=== PATIENT | female | born 1955 | race Caucasian/White ===

== ENCOUNTER 2018-04-25 11:26 | Emergency (ER) | payer OTHER ==
--- OUTSIDE RECORDS SUMMARY | 2018-04-25 11:29 | XMS REPORT | Clinical Summary ---
:1955 Author Organization [facility] Address [address] [place] [address] Care Team Providers Name Role Phone Carol Ann Katz MD Primary Care Provider Allergies Active Allergy Reactions Severity Noted Date Comments Tramadol 07/08/2017 Medications Medication Sig Dispensed Refills Start Date End Date Status diphenhydrAMINE Take 25 mg by 0 Active (BENADRYL) 25 mg mouth daily as tablet needed for itching, allergies or sleep. fluticasone (FLONASE) 2 sprays by 0 Active 50 mcg/actuation nasal Each Nare route spray daily as needed for rhinitis or allergies. ibuprofen Take 200 mg by 0 Active (ADVIL,MOTRIN) 200 MG mouth every 6 tablet (six) hours as needed for mild pain. VALACYCLOVIR HCL Take 1 tablet 0 Active (VALTREX ORAL) by mouth daily as needed. omeprazole OTC Take 20 mg by 0 Active (PriLOSEC OTC) 20 MG mouth daily as EC tablet needed. conjugated estrogens Insert 0.5 g 30 g 1 04/15/2017 Active (PREMARIN) 0.625 into the vagina mg/gram vaginal 3 (three) times creamIndications: a week. Post-operative state, (Tuesday, History of recurrent Tuesday, & UTIs Tuesday) AT NIGHT. nitrofurantoin, Take 1 capsule 14 capsule 0 04/18/2017 04/25/2017 macrocrystal-monohydra (100 mg total) te, (MACROBID) 100 MG by mouth 2 capsule (two) times a day for 7 days. nitrofurantoin, Take 1 capsule 14 capsule 0 08/18/2017 08/25/2017 macrocrystal-monohydra (100 mg total) te, (MACROBID) 100 MG by mouth 2 capsuleIndications: (two) times a Bacterial UTI day for 7 days. epINEPHrine (EPIPEN) Inject 0.3 mL 1 Syringe 0 11/17/2017 11/17/2017 0.3 mg/0.3 mL (0.3 mg total) auto-injectorIndicatio into the ns: Urinary tract shoulder, infection without thigh, or hematuria, site buttocks once unspecified for 1 dose. cephalexin (KEFLEX) Take 1 capsule 90 capsule 0 12/22/2017 03/22/2018 250 MG (250 mg total) capsuleIndications: by mouth daily Recurrent UTI for 90 days. Active Problems Problem Noted Date Urinary tract infection 07/08/2017 History of recurrent UTIs 02/15/2017 Encounters Date Type Specialty Care Team Description 03/27/2018 Telephone UrologAnnalise Curiel MD 02/21/2018 Telephone UrologAnnalise Curiel MD 01/20/2018 Telephone UrologAnnalise Curiel History of UTI MD Gaby (Primary Dx) 01/17/2018 Telephone Annalise Hamlin MD 01/16/2018 Telephone Annalise Hamlin MD 01/10/2018 Telephone Annalise Hamlin History of UTI MD Gaby (Primary Dx) 12/28/2017 Telephone Urology Patt Alicia MA 12/22/2017 Office Visit Urogynecology Lauren Mcgraw Recurrent UTI Hernandez Vaughan MD (Primary Dx) 12/14/2017 Telephone Annalise Hamlin MD infection without hematuria, site unspecified (Primary Dx) 12/13/2017 Telephone Annalise Hamlin MD 12/09/2017 Telephone Urology Patt Alicia MA 12/08/2017 Telephone Annalise Hamlin MD 12/06/2017 Clinical Support Annalise Hamlin MD infection without hematuria, site unspecified (Primary Dx) 12/06/2017 Orders Only Annalise Hamlin MD 12/05/2017 Orders Only Annalise Hamlin Urinary heidi Griffin MD infection without hematuria, site unspecified (Primary Dx) 12/05/2017 Telephone Urology Annalise Gibson MD 11/29/2017 Emergency Emergency Medicine Andre English, Allergic contact MD dermatitis due to adhesives (Primary Dx) 11/29/2017 Telephone Urology Annalise Gibson MD 11/22/2017 Telephone Urology Annalise Gibson MD 11/17/2017 Telephone Urology Annalise Gibson MD 11/17/2017 Telephone Urology Pam Lawson, Urinary tract [employer] infection without hematuria, site unspecified (Primary Dx) 11/16/2017 Hospital Vascular Access Tamika Gibson UTI (urinary tract Encounter MD Catracho infection) 11/16/2017 Lab Lab Annalise Gibson MD 11/16/2017 Hospital Radiology Annalise Gibson Frequent UTI Encounter MD Gaby 11/16/2017 Lab Lab Annalise Gibson History of urinary Gaby MD tract infection (Primary Dx) 11/16/2017 Lab Lab Annalise Gibson History of UTI; MD Gaby Frequent UTI 11/16/2017 [facility] Vascular Access Tamika Gibson Encounter MD Catracho 11/16/2017 Telephone Urology Annalise Gibson MD 11/14/2017 Telephone Urology Annalise Gibson History of UTI MD Gaby (Primary Dx) 11/10/2017 Office Visit Urology Annalise Gibson Frequent UTI (Primary Dx); MD Gaby Chronic bladder pain 09/14/2017 Telephone Obstetrics Lauren Calabrese Gynecology Hernandez Vaughan MD 09/09/2017 Telephone Urogynecology Lauren Mcgraw MD 08/22/2017 Telephone Urogynecology Lauren Mcgraw MD 08/18/2017 Office Visit Urogynecology Lauren Mcgraw Urinary tract infection without hematuria, site unspecified (Primary Dx); Hernandez Vaughan MD Bacterial UTI; Incomplete bladder emptying 07/14/2017 Telephone Obstetrics Lauren Calabrese Gynecology Hernandez Vaughan MD 07/08/2017 - Emergency General Internal Yanni Hernandez Acute cystitis without hematuria (Primary Dx); 07/09/2017 Medicine MD Saira Urinary tract infection without hematuria, site unspecified Cristina Oshea MD Poonawala, Ashiqueali I., MD 07/07/2017 Emergency Emergency Medicine after 04/24/2017 Family History Medical History Relation Name Comments Diabetes Father Hyperlipidemia Mother Relation Name Status Comments Brother Alive Brother Alive Father Mother Alive Sister Alive Sister Alive Social History Tobacco Use Types Packs/Day Years Used Date Never Smoker Smokeless Tobacco: Never Used Alcohol Use Drinks/Week oz/Week Comments No Sex Assigned at Date Recorded Not on file Job Start Date Occupation Industry Not on file Not on file Not on file Travel History Travel Start Travel End No recent travel history available. Last Filed Vital Signs Vital Sign Reading Time Taken Blood Pressure 132/79 12/22/2017 8:18 AM SKIN DIVER Pulse 65 12/22/2017 8:18 AM SKIN DIVER Temperature 37.1 C (98.8 F) 12/22/2017 8:18 AM SKIN DIVER Respiratory Rate 17 11/29/2017 10:43 PM CDT Oxygen Saturation 98% 11/29/2017 10:43 PM CDT Inhaled Oxygen Concentration - - Weight 75.8 kg (167 lb) 12/22/2017 8:18 AM SKIN DIVER Height 170.2 cm (5' 7") 12/22/2017 8:18 AM SKIN DIVER Body Mass Index 26.16 12/22/2017 8:18 AM SKIN DIVER Plan of Treatment Health Maintenance Due Date Last Done Comments CERVICAL CANCER SCREENING 1977 BREAST CANCER SCREENING 2006 COLON CANCER SCREENING 2006 SHINGLES VACCINES (#1) 2006 INFLUENZA VACCINE 09/14/2017 Implants Implanted Type Area Water Taxi Driver Device Shelf Model / Identifier Expiration Serial / Date Lot Matrix [employer] Floseal 5ml W/ Humn F2 - [id number] Surgical N/A: N/A HERNANDES [id number] / Implanted: 02/02/2017 (Quantity not on file) Implants; [employer] / Expanders; Extenders; Surgical Wires Titanium Procedures Procedure Name Priority Date/Time Associated Comments Diagnosis URINE CULTURE Routine 01/23/2018 3:18 History of UTI Results for this PM SKIN DIVER procedure are in the results section. POC URINALYSIS Routine 12/22/2017 8:30 Recurrent UTI Results for this DIPSTICK AM SKIN DIVER procedure are in the results section. MEASURE POST VOID Routine 12/22/2017 Recurrent UTI Results for this RESIDUAL procedure are in the results section. URINE CULTURE Routine 12/16/2017 12:14 Urinary tract Results for this PM CDT infection without procedure are in hematuria, site the results unspecified section. URINE CULTURE Routine 12/06/2017 11:30 Results for this AM CDT procedure are in the results section. US DUPLEX VENOUS UPPER STAT 11/29/2017 9:39 Results for this EXTREMITY RIGHT PM CDT procedure are in the results section. XR PICC CHEST PORTABLE Routine 11/16/2017 3:04 UTI (urinary tract Results for this PM CDT infection) procedure are in the results section. HC CATH DUAL LUMEN Routine 11/16/2017 2:39 Results for this PICC PM CDT procedure are in the results section. HC US GUIDED VASCULAR Routine 11/16/2017 2:39 Results for this ACCESS PM CDT procedure are in the results section. CT UROGRAM Routine 11/16/2017 2:33 Frequent UTI Results for this PM CDT procedure are in the results section. ESTIMATED GFR STAT 11/16/2017 11:28 Results for this AM CDT procedure are in the results section. BASIC METABOLIC PANEL STAT 11/16/2017 11:28 History of urinary Results for this AM CDT tract infection procedure are in the results section. PROTHROMBIN TIME WITH Routine 11/10/2017 3:14 Frequent UTI Results for this INR PM CDT Chronic bladder procedure are in pain the results section. CBC WITH PLATELET AND Routine 11/10/2017 3:14 Frequent UTI Results for this DIFFERENTIAL PM CDT Chronic bladder procedure are in pain the results section. MICROSCOPIC Routine 11/10/2017 3:04 Results for this EXAMINATION PM CDT procedure are in the results section. URINALYSIS, AUTOMATED Routine 11/10/2017 3:04 Results for this WITH MICROSCOPY PM CDT procedure are in the results section. URINE CULTURE Routine 11/10/2017 3:04 Frequent UTI Results for this PM CDT procedure are in the results section. POC URINALYSIS Routine 11/10/2017 1:22 Frequent UTI Results for this DIPSTICK PM CDT procedure are in the results section. URINE CULTURE Routine 08/18/2017 11:29 Urinary tract Results for this AM CDT infection without procedure are in hematuria, site the results unspecified section. MEASURE POST VOID Routine 08/18/2017 8:32 Urinary tract Results for this RESIDUAL AM CDT infection without procedure are in hematuria, site the results unspecified section. POC URINALYSIS Routine 08/18/2017 8:31 Urinary tract Results for this DIPSTICK AM CDT infection without procedure are in hematuria, site the results unspecified section. ZZESTIMATED GFR Routine 07/09/2017 4:30 Results for this AM CDT procedure are in the results section. HC COMPLETE BLD COUNT Routine 07/09/2017 4:30 Results for this W/AUTO DIFF AM CDT procedure are in the results section. BASIC METABOLIC PANEL Routine 07/09/2017 4:30 Results for this AM CDT procedure are in the results section. URINALYSIS SCREEN AND Routine 07/08/2017 12:24 Results for this MICROSCOPY, WITH PM CDT procedure are in REFLEX TO CULTURE the results section. GRAM STAIN Routine 07/08/2017 12:22 Results for this PM CDT procedure are in the results section. URINE CULTURE Routine 07/08/2017 12:22 Results for this PM CDT procedure are in the results section. ZZESTIMATED GFR STAT 07/08/2017 10:59 Results for this AM CDT procedure are in the results section. BASIC METABOLIC PANEL STAT 07/08/2017 10:59 Results for this AM CDT procedure are in the results section. HC COMPLETE BLD COUNT Routine 07/08/2017 10:59 Results for this W/AUTO DIFF AM CDT procedure are in the results section. BLOOD CULTURE, AEROBIC Routine 07/07/2017 6:10 Results for this & ANAEROBIC PM CDT procedure are in the results section. ZZESTIMATED GFR STAT 07/07/2017 6:07 Results for this PM CDT procedure are in the results section. LIPASE LEVEL STAT 07/07/2017 6:07 Results for this PM CDT procedure are in the results section. COMPREHENSIVE STAT 07/07/2017 6:07 Results for this METABOLIC PANEL PM CDT procedure are in the results section. HC COMPLETE BLD COUNT STAT 07/07/2017 6:07 Results for this W/AUTO DIFF PM CDT procedure are in the results section. BLOOD CULTURE, AEROBIC Routine 07/07/2017 6:07 Results for this & ANAEROBIC PM CDT procedure are in the results section. after 04/24/2017 Results Urine culture (01/23/2018 3:18 PM SKIN DIVER)Only the most recent of6 resultswithin the time period is included. Urine culture SEE NOTE [facility] Comment: CULTURE, URINE, ROUTINE MICRO NUMBER:[id number] TEST STATUS: FINAL SPECIMEN SOURCE: URINE SPECIMEN QUALITY:ADEQUATE RESULT:Multiple organisms present, each less than 10,000 CFU/mL. These organisms, commonly found on external and internal genitalia, are considered to be colonizers. No further testing performed. Specimen Urine Resulting Agency Comment Performing Organization Information: Site ID: [id number] Name: [facility] Address: [address] [place] [id number] Director: Karolina Irvin Performing Organization Address City/State/Zipcode Phone Number [employer] [place] [phone] POC urinalysis dipstick (12/22/2017 8:30 AM SKIN DIVER)Only the most recent of3 resultswithin the time period is included. Color urine, POC Yellow Clarity urine, POC Clear Glucose urine, POC Negative Negative Bilirubin urine, POC Negative Negative Ketones urine, POC Negative Negative Specific gravity urine, POC 1.020 1.005 - 1.030 Blood urine, POC Small (A) Negative pH urine, POC 5.0 5.0, 5.5, 6.0, 6.5, 7.0, 7.5, 8.0, 8.5 Protein urine, POC Negative Negative Urobilinogen urine, POC <2.0 <2.0 Nitrite urine, POC Positive (A) Negative Leukocyte esterase urine, POC Trace (A) Negative Specimen Urine Measure post void residual (12/22/2017)Only the most recent of2 resultswithin the time period is included. Total volume, urine 30 ml PV Duplex Venous Upper Extremity (11/29/2017 9:39 PM CDT) Narrative Performed At [facility] Vascular Ultrasound Laboratory Upper Extremity Venous Report [id number] [id number] Pat.Name:Alicia TURK.ID:[id number] St.Date: 11/29/2017Refer.MD:ANDRE ENGLISH MD Exam Time: 9:25:00 PMStudy Type:UE Venous Height:67inWeight: 165lb BSA: 1.86 m2 DOBAge:1955,62Y Sex: FEMALESonogrphr: Cassidy Collins RVT Pat. Stat.:Inpatient Room:ED-EDT TapeVol: JAVY, CPT - 4: 32450 Echo Event ID:[id number] Order ID:[id number] Reason for Study:RUE swelling and pain. Procedures:Colorflow, Grayscale/2D, Pulsed wave Doppler Race:C SUMMARY: DUPLEX SCAN OBSERVATIONS Right Left IJNormal SubclavianNormal Normal AxillaryNormal BrachialNormal BasilicNormal CephalicNormal RIGHT:There is normal compressibility and no evidence of echogenic material noted within the lumen of the visualized veins. Colorflow and Doppler signals are normal. A PICC line is visualized in the subclavian, axillary, and basilic veins. The mid-distal segment of the brachial vein is not visualized due to PICC line/dressing. LEFT:There is normal compressibility and no evidence of echogenic material noted within the lumen of the subclavian vein. Colorflow and Doppler signals are normal. PRELIMINARY FINDINGS 1. No evidence of venous thrombosis of visualized veins in right upper extremity and left subclavian vein. Preliminary reported to Andre Jansen @ 2200 hrs on 11/29/17. PHYSICIAN INTERPRETATION Venous examination of the right upper extremity and neck demonstrated no evidence of venous thrombosis. Signed 11/29/2017 11:25 PM Ronald Jhonson MD, RPVI Procedure Note Interface, Radiology Results In - 11/29/2017 11:26 PM CDT Vascular Ultrasound Laboratory Upper Extremity Venous Report [id number] [place] [address] Pat.Name: BRISSA TURK Pat.ID: [id number] St.Date: 11/29/2017 Refer.MD: ANDRE ENGLISH MD Exam Time: 9:25:00 PM Study Type:UE Venous Height: 67in Weight: 165lb BSA: 1.86 m2 Age: 8 1955,62Y Sex: FEMALE Sonogrphr: Cassidy Collins RVT Pat. Stat.:Inpatient Room: ED-EDT Tape Vol: JJ, CPT - 4: 56494 Echo Event ID:[id number] Order ID: [id number] Reason for Study:RUE swelling and pain. Procedures:Colorflow, Grayscale/2D, Pulsed wave Doppler Race: C SUMMARY: DUPLEX SCAN OBSERVATIONS Right Left IJ Normal Subclavian Normal Normal Axillary Normal Brachial Normal Basilic Normal Cephalic Normal RIGHT:There is normal compressibility and no evidence of echogenic material noted within the lumen of the visualized veins. Colorflow and Doppler signals are normal. A PICC line is visualized in the subclavian, axillary, and basilic veins. The mid-distal segment of the brachial vein is not visualized due to PICC line/dressing. LEFT:There is normal compressibility and no evidence of echogenic material noted within the lumen of the subclavian vein. Colorflow and Doppler signals are normal. PRELIMINARY FINDINGS 1. No evidence of venous thrombosis of visualized veins in right upper extremity and left subclavian vein. Preliminary reported to Andre Jansen @ 2200 hrs on 11/29/17. PHYSICIAN INTERPRETATION Venous examination of the right upper extremity and neck demonstrated no evidence of venous thrombosis. Signed 11/29/2017 11:25 PM Ronald Johnson MD, RPVI Performing Organization Address City/State/Zipcode Phone Number [facility] [address] [place] [address] XR Picc Chest Portable (11/16/2017 3:04 PM CDT) Narrative Performed At EXAMINATION:XR PICC CHEST PORTABLE RADIANT INDICATION:N39.0 Urinary tract infectionsite not specified, Long-term antibiotics COMPARISON:None IMPRESSION: 1.Right upper extremity PICC terminates at the cavoatrial junction. 2.Otherwise, visualized lungs, cardiomediastinal silhouette and bones are unremarkable. [id number] Procedure Note Interface, Radiology Results Incoming - 11/16/2017 4:16 PM CDT EXAMINATION: XR PICC CHEST PORTABLE INDICATION: N39.0 Urinary tract infection site not specified, Long-term antibiotics COMPARISON:None IMPRESSION: 1. Right upper extremity PICC terminates at the cavoatrial junction. 2. Otherwise, visualized lungs, cardiomediastinal silhouette and bones are unremarkable. [id number] Performing Organization Address City/State/Zipcode Phone Number [facility] [address] [place] [address] PICC INSERTION (11/16/2017 2:39 PM CDT) Narrative Performed At Clemente Villaseñor RN 11/16/20173:02 PM PICC insertion Date/Time: 11/16/2017 2:39 PM Performed by: EMRE PALMA Authorized by: TAMIKA GIBSON Consent: Consent obtained:Verbal Consent given by:Patient Risks discussed: arterial puncture, incorrect placement, nerve damage, bleeding, infection, superficial thrombus and deep vein thrombus [place] protocol: Procedure explained and questions answered to patient or proxy's satisfaction: yes Relevant documents present and verified: yes Test results available and properly labeled: yes Imaging studies available: yes Required blood products, implants, devices, and special equipment available: yes Site/side marked: yes Immediately prior to procedure, a time out was called: yes Patient identity confirmed:Verbally with patient, arm band, provided demographic data and hospital-assigned identification number Pre-procedure details: Hand hygiene: Hand hygiene performed prior to insertion Sterile barrier technique: All elements of maximal sterile technique followed Skin preparation:2% chlorhexidine Skin preparation agent: Skin preparation agent completely dried prior to procedure Anesthesia (see MAR for exact dosages): Anesthesia method:Local infiltration Local anesthetic:Lidocaine 1% w/o epi Route of administration:Subcutaneous PICC Line Placement Details (Will create an LDA): Patient position:Flat Vessel Size (mm):6 Indication:Known chcf IV therapy Location:Right basilic Device Type:Non-valved Catheter size:5 Fr PICC Characteristics: Catheter Brand:BIOFLO POWER PICC External Catheter Length (cm):1 Internal Catheter Length (cm):40 Total Catheter Length (cm):41 Catheter Lot [id number] Catheter Expiration Date:08/14/2019 Procedure Details: Landmarks identified: yes Ultrasound guidance: yes Sterile ultrasound techniques: Sterile gel and sterile probe covers were used Number of attempts:1 Number of PICC kits used during procedure:1 Purpose of procedure:PICC Placement Patency/Placement:Flushed with 10 mL normal saline, x-ray placement verified, injection cap placed, positive blood return and flushes without difficulty PICC placed utlizing ultrasound-guided Modified Seldinger Technique: Yes Dressing/Securement:Dressing dry and intact, catheter securement device and antimicrobial dressing applied Blood Loss Amount:Less than 20 mL Post-Procedure Details: Post-procedure:Dressing applied Tip placement confirmed by chest x-ray: Yes Tip position adjusted per chest x-ray: Yes PICC pulled back (cm):1 Tip placement confirmed by repeat chest x-ray: Yes Patient tolerance of procedure:Tolerated well, no immediate complications CT Urogram (11/16/2017 2:33 PM CDT) Narrative Performed At EXAMINATION:[facility] CLINICAL HISTORY:N39.0 Urinary tract infectionsite not specified, hematuriafrequent UTI TECHNIQUE:CT of the abdomen and pelvis was performed without contrast utilizing renal stone protocol. Subsequently, postcontrast CT of the abdomen and pelvis was obtained with multiphase renal mass and CT urogram protocol. Sagittal and coronal computerized reformatted images were also obtained. CT scans are performed using radiation dose reduction techniques. Technical factors are evaluated and adjusted to ensure appropriate moderation of exposure. Automated dose management technology is applied to adjust radiation exposure while achieving a diagnostic quality image. COMPARISON:CT abdomen dated February 15, 2017 IMPRESSION: Abdomen: 1. Precontrast imaging demonstrates no nephrolithiasis. Postcontrast images demonstrate no renal mass. There is no hydronephrosis. Previously described bilateral urothelial thickening and enhancement has resolved. No focal urothelial enhancing lesions are seen. Delayed urogram/expiratory images demonstrate no left-sided ureteral filling defects. The right ureter was poorly opacified. 2.The liver, spleen, pancreas and adrenals are within normal limits. The abdominal aorta is normal in caliber. There is no regional adenopathy. 3.Bowel is unobstructed. Pelvis: 1. The urinary bladder is unremarkable. 2.The uterus is surgically absent. There is no adnexal mass. 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 [id number] Procedure Note Interface, Radiology Results Incoming - 11/16/2017 3:06 PM CDT EXAMINATION: CT UROGRAM CLINICAL HISTORY: N39.0 Urinary tract infection site not specified, hematuria frequent UTI TECHNIQUE: CT of the abdomen and pelvis was performed without contrast utilizing renal stone protocol. Subsequently, postcontrast CT of the abdomen and pelvis was obtained with multiphase renal mass and CT urogram protocol. Sagittal and coronal computerized reformatted images were also obtained. CT scans are performed using radiation dose reduction techniques. Technical factors are evaluated and adjusted to ensure appropriate moderation of exposure. Automated dose management technology is applied to adjust radiation exposure while achieving a diagnostic quality image. COMPARISON: CT abdomen dated February 15, 2017 IMPRESSION: Abdomen: 1. Precontrast imaging demonstrates no nephrolithiasis. Postcontrast images demonstrate no renal mass. There is no hydronephrosis. Previously described bilateral urothelial thickening and enhancement has resolved. No focal urothelial enhancing lesions are seen. Delayed urogram/expiratory images demonstrate no left-sided ureteral filling defects. The right ureter was poorly opacified. 2. The liver, spleen, pancreas and adrenals are within normal limits. The abdominal aorta is normal in caliber. There is no regional adenopathy. 3. Bowel is unobstructed. Pelvis: 1. The urinary bladder is unremarkable. 2. The uterus is surgically absent. There is no adnexal mass. 3. 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 [id number] Performing Organization Address [facility] Phone Number [facility] [address] [place] [address] Estimated GFR (11/16/2017 11:28 AM CDT) Estimated GFR 75 mL/min/1.73 m2 [facility] DEPARTMENT OF Comment: PATHOLOGY AND GENOMIC CatergoryUnitsInterpretation MEDICINE G1 >=90 Normal or high G2 60-89Mildly decreased [id number] to moderately decreased [id number] to severely decreased G4 15-29Severely decreased G5 <15Kidney failure The eGFR was calculated using the Chronic Kidney Disease Epidemiology Collaboration (CKD-EPI) equation. Interpretation is based on recommendations of the National Kidney Foundation-Kidney Disease Outcomes Quality Initiative (NKF-KDOQI) published in 2014. Specimen Plasma specimen Performing Organization Address [facility] Cent[facility] Phone Number [facility] DEPARTMENT OF PATHOLOGY AND [address] [place] [address] [employer] [facility] Basic metabolic panel (11/16/2017 11:28 AM CDT)Only the most recent of3 resultswithin the time period is included. Sodium 143 135 - 148 mEq/L [facility] DEPARTMENT OF PATHOLOGY AND GENOMIC MEDICINE Potassium 4.6 3.5 - 5.0 mEq/L [facility] DEPARTMENT OF PATHOLOGY AND GENOMIC MEDICINE Chloride 105 98 - 112 mEq/L [facility] DEPARTMENT OF PATHOLOGY AND GENOMIC MEDICINE CO2 28 24 - 31 mEq/L [facility] DEPARTMENT OF PATHOLOGY AND GENOMIC MEDICINE Anion gap 10@ANIO 7 - 15 mEq/L [facility] DEPARTMENT OF PATHOLOGY AND GENOMIC MEDICINE BUN 15 8 - 23 mg/dL [facility] OF PATHOLOGY AND GENOMIC MEDICINE Creatinine 0.84 0.50 - 0.90 mg/dL [facility] DEPARTMENT OF PATHOLOGY AND GENOMIC MEDICINE Glucose 99 65 - 99 mg/dL [facility] DEPARTMENT OF PATHOLOGY AND GENOMIC MEDICINE Calcium 9.4 8.8 - 10.2 mg/dL [facility] DEPARTMENT OF PATHOLOGY AND GENOMIC MEDICINE Specimen Plasma specimen Performing Organization Address City/[facility] Cent[facility]ode Phone Number [facility] DEPARTMENT OF PATHOLOGY AND [address] [place] [phone] [employer] [facility] Prothrombin time with INR (11/10/2017 3:14 PM CDT) INR 1.0 0.8 - 1.2 [facility] Comment: Reference interval is for non-anticoagulated patients. Suggested INR therapeutic range for Vitamin K antagonist therapy: Standard Dose (moderate intensity therapeutic range): 2.0 - 3.0 Higher intensity therapeutic range 2.5 - 3.5 Prothrombin time 10.9 9.1 - 12.0 sec [facility] Specimen Blood Narrative Performed At Performed at:01 - [facility] [address] [place], [place] [id number] Watch Leader: Shoaib Johnson MD, Phone:[phone] Performing Organization Address City/[facility]/Zipcode Phone Number [facility] CBC with platelet and differential (11/10/2017 3:14 PM CDT)Only the most recent of4 resultswithin the time period is included. WBC 7.0 3.4 - 10.8 x10E3/uL [facility] RBC 4.29 3.77 - 5.28 x10E6/uL [facility] HGB 13.6 11.1 - 15.9 g/dL [facility] HCT 40.7 34.0 - 46.6 % [facility] MCV 95 79 - 97 fL [facility] MCH 31.7 26.6 - 33.0 pg [facility] MCHC 33.4 31.5 - 35.7 g/dL [facility] RDW 13.8 12.3 - 15.4 % [facility] Platelet count 280 150 - 379 x10E3/uL [facility] Neutrophils 54 Not Estab. % [facility] Lymphocytes 37 Not Estab. % [facility] Monocytes 5 Not Estab. % [facility] Eosinophils 3 Not Estab. % [facility] Basophils 1 Not Estab. % [facility] Neutrophils, absolute 3.8 1.4 - 7.0 x10E3/uL [facility] Lymphocytes, absolute 2.6 0.7 - 3.1 x10E3/uL [facility] Monocytes, absolute 0.4 0.1 - 0.9 x10E3/uL [facility] Eosinophils, absolute 0.2 0.0 - 0.4 x10E3/uL [facility] Basophils, absolute 0.0 0.0 - 0.2 x10E3/uL [facility] Immature granulocytes 0 Not Estab. % [facility] Immature grans (abs) 0.0 0.0 - 0.1 x10E3/uL [facility] Specimen Blood Narrative Performed At [facility]formed at: [facility] [address] [place], [place] [id number] Watch Leader: Shoaib Johnson MD, Phone:[phone] Performing Organization Address [facility] Phone Number [facility] Microscopic Examination (11/10/2017 3:04 PM CDT) WBC, UA 0-5 0 - 5 /hpf [facility] RBC, UA 0-2 0 - 2 /hpf [facility] Epithelial cells (non renal) 0-10 0 - 10 /hpf [facility] Mucus, UA Present Not Estab. [facility] Bacteria, UA Few None seen/Few [facility] Narrative Performed At Performed at: - [facility] [address] [place], [place] [id number] Watch Leader: Shoaib Johnson MD, Phone:[phone] Performing Organization Address [facility] Phone Number [facility] Urinalysis, automated with microscopy (11/10/2017 3:04 PM CDT) Specific gravity, urine 1.021 1.005 - 1.030 [facility] pH, urine 6.0 5.0 - 7.5 [facility] Color, UA Yellow Yellow [facility] Appearance Clear Clear [facility] WBC esterase, urine 1+ (A) Negative [facility] Protein, UA Negative Negative/Trace [facility] Glucose, urine Negative Negative [facility] Ketones, UA Negative Negative [facility] Occult blood, urine Negative Negative [facility] Bilirubin, UA Negative Negative [facility] Urobilinogen, UA 0.2 0.2 - 1.0 mg/dL [facility] Nitrite, UA Positive (A) Negative [facility] Microscopic examination See below:Comment: Microscopic [facility] was indicated and was performed. Narrative Performed At Performed at:01 - [facility] [address] [place], [id number] Watch Leader: Shoaib Johnson MD, Phone:[phone] Performing Organization Address City/[facility]coin Phone Number [facility] Estimated GFR (07/09/2017 4:30 AM CDT)Only the most recent of3 resultswithin the time period is included. GFR Non Af Amer 56 (A) mL/min/1.73 m2 [facility] DEPARTMENT OF PATHOLOGY AND GENOMIC MEDICINE GFR Af Amer 68 mL/min/1.73 m2 [facility] DEPARTMENT OF Comment: PATHOLOGY AND GENOMIC Chronic kidney disease: <60 mL/min/1.73m2 MEDICINE Kidney failure: <15 mL/min/1.73m2 The estimated GFR is calculated from the IDMS-traceable Modification of Diet in Renal Disease Equation. The accuracy of the calculation is poor when the creatinine is normal. Calculated values >90 mL/min/1.73m2 are not reported. This equation has not been validated in children (<18 years), women, the elderly (>70 years), or ethnic groups other than Caucasians and Americans. Specimen Plasma specimen Performing Organization Address City/[facility]coin Phone Number [facility] [place] [address], [address] [place] [address] PATHOLOGY AND GENOMIC MEDICINE Urinalysis screen and microscopy, with reflex to culture (07/08/2017 12:24 PM CDT) Specimen site Clean catch [facility] DEPARTMENT OF PATHOLOGY AND GENOMIC MEDICINE Color, UA Yellow [facility] DEPARTMENT OF PATHOLOGY AND GENOMIC MEDICINE Appearance, UA Clear [facility] DEPARTMENT OF PATHOLOGY AND GENOMIC MEDICINE Specific gravity, UA 1.015 1.001 - 1.035 [facility] DEPARTMENT OF PATHOLOGY AND GENOMIC MEDICINE pH, UA 6.0 5.0 - 8.5 [facility] DEPARTMENT OF PATHOLOGY AND GENOMIC MEDICINE Protein, UA Negative Negative [facility] DEPARTMENT OF PATHOLOGY AND GENOMIC MEDICINE Glucose, UA Negative Negative [facility] DEPARTMENT OF PATHOLOGY AND GENOMIC MEDICINE Ketones, UA Negative Negative [facility] DEPARTMENT OF PATHOLOGY AND GENOMIC MEDICINE Bilirubin, UA Negative Negative [facility] DEPARTMENT OF PATHOLOGY AND GENOMIC MEDICINE Blood, UA Negative Negative [facility] DEPARTMENT OF PATHOLOGY AND GENOMIC MEDICINE Nitrite, UA Negative Negative [facility] DEPARTMENT OF PATHOLOGY AND GENOMIC MEDICINE Urobilinogen, UA <2.0 <2.0 [facility] DEPARTMENT OF PATHOLOGY AND GENOMIC MEDICINE Leukocyte esterase, UA Moderate (A) Negative [facility] DEPARTMENT OF PATHOLOGY AND GENOMIC MEDICINE Epithelial cells, UA 1 /HPF [facility] DEPARTMENT OF PATHOLOGY AND GENOMIC MEDICINE WBC, UA 6 (H) 0 - 5 /HPF [facility] DEPARTMENT OF PATHOLOGY AND GENOMIC MEDICINE RBC, UA 2 0 - 5 /HPF [facility] DEPARTMENT OF PATHOLOGY AND GENOMIC MEDICINE Bacteria, UA Few None seen [facility] DEPARTMENT OF PATHOLOGY AND GENOMIC MEDICINE Yeast, UA None seen [facility] DEPARTMENT OF PATHOLOGY AND GENOMIC MEDICINE Yeast with pseudohyphae, UA None seen [facility] DEPARTMENT OF PATHOLOGY AND GENOMIC MEDICINE Specimen Urine Performing Organization Address City/[facility]/Zipcode Phone Number [facility] DEPARTMENT [address], [address] [place] [address] PATHOLOGY AND GENOMIC MEDICINE Gram stain (07/08/2017 12:22 PM CDT) Gram stain result Rare WBC's [facility] DEPARTMENT OF PATHOLOGY No organisms seen AND GENOMIC MEDICINE Comment: Specimen Information Specimen Source: Urine Specimen Site: Clean catch Specimen Urine Performing Organization Address City/[facility] Centercode Phone Number [facility] DEPARTMENT OF PATHOLOGY AND [address] [place] [address] Blood culture, aerobic & anaerobic (07/07/2017 6:10 PM CDT)Only the most recent of2 resultswithin the time period is included. Blood culture isolate No growth after 5 days of incubation. [facility] DEPARTMENT OF Comment: PATHOLOGY AND GENOMIC Specimen Information MEDICINE Specimen Source: Blood Specimen Site: Antecubital, right Specimen Blood - Antecubital, right Performing Organization Address City/[facility]/Zipcode Phone Number [facility] DEPARTMENT OF PATHOLOGY AND [address] [place] [phone] [facility] Lipase level (07/07/2017 6:07 PM CDT) Lipase 30 13 - 60 U/L [facility] DEPARTMENT OF PATHOLOGY AND GENOMIC MEDICINE Specimen Plasma specimen Performing Organization Address City/[facility] Centercode Phone Number [facility] DEPARTMENT OF PATHOLOGY AND [address] [place] [phone] [facility] Comprehensive metabolic panel (07/07/2017 6:07 PM CDT) Sodium 145 135 - 148 mEq/L [facility] DEPARTMENT OF PATHOLOGY AND GENOMIC MEDICINE Potassium 4.4 3.5 - 5.0 mEq/L [facility] DEPARTMENT OF PATHOLOGY AND GENOMIC MEDICINE Chloride 104 98 - 112 mEq/L [facility] DEPARTMENT OF PATHOLOGY AND GENOMIC MEDICINE CO2 27 24 - 31 mEq/L [facility] DEPARTMENT OF PATHOLOGY AND GENOMIC MEDICINE Anion gap 14@ANIO 7 - 15 mEq/L [facility] DEPARTMENT OF PATHOLOGY AND GENOMIC MEDICINE BUN 13 8 - 23 mg/dL [facility] DEPARTMENT OF PATHOLOGY AND GENOMIC MEDICINE Creatinine 1.0 (H) 0.5 - 0.9 mg/dL [facility] DEPARTMENT OF PATHOLOGY AND GENOMIC MEDICINE Glucose 107 (H) 65 - 99 mg/dL [facility] DEPARTMENT OF PATHOLOGY AND GENOMIC MEDICINE Calcium 9.7 8.8 - 10.2 mg/dL [facility] DEPARTMENT OF PATHOLOGY AND GENOMIC MEDICINE Protein 7.7 6.3 - 8.3 g/dL [facility] DEPARTMENT OF Comment: PATHOLOGY AND GENOMIC [place] 4.6-7.0 g/dL MEDICINE 1 week 4.4-7.6 g/dL 7 months-1year5.1-7.3 g/dL 1-2 years5.6-7.5 g/dL >3 years6.0-8.0 g/dL 18-150 6.3-8.3 g/dL Albumin 4.1 3.5 - 5.0 g/dL [facility] DEPARTMENT OF PATHOLOGY AND GENOMIC MEDICINE A/G ratio 1.1 0.7 - 3.8 [facility] DEPARTMENT OF PATHOLOGY AND GENOMIC MEDICINE Alkaline phosphatase 95 35 - 104 U/L [facility] DEPARTMENT OF PATHOLOGY AND GENOMIC MEDICINE AST 25 10 - 35 U/L [facility] DEPARTMENT OF PATHOLOGY AND GENOMIC MEDICINE ALT 24 5 - 50 U/L [facility] DEPARTMENT OF PATHOLOGY AND GENOMIC MEDICINE Total bilirubin <0.2 0.0 - 1.2 mg/dL [facility] DEPARTMENT OF PATHOLOGY AND GENOMIC MEDICINE Specimen Plasma specimen Performing Organization Address City/[facility]/Zipcode Phone Number [facility] DEPARTMENT OF PATHOLOGY AND [address] [place] [address] GENOMIC MEDICINE after 04/24/2017 Insurance Payer Benefit Plan / Group Subscriber ID Type Phone Address [facility] O Advance Directives Patient has advance care planning documents on file. For more information, please contact:Saleem Brown[address] [place] [address]
--- OUTSIDE RECORDS SUMMARY | 2018-04-25 11:30 | XMS REPORT | Clinical Summary ---
:1955 Author Organization [facility] Address [address] [place] [address] Care Team Providers Name Role Phone Lauren Myers RN Primary Care Provider Unavailable Allergies Active Allergy Reactions Severity Noted Date Comments Sulfamethoxazole-Trimethoprim Rash Low 07/12/2014 Cefaclor Rash Low 07/12/2014 Medications Medication Sig Dispensed Refills Start Date End Date Status diphenhydrAMINE Take 25 mg by 0 Active (BENADRYL) 25 mg tablet mouth every night as needed for Sleep. loratadine (CLARITIN) Take 10 mg by 0 Active 10 mg tablet mouth daily. omeprazole (PRILOSEC) Take 10 mg by 0 Active 10 MG capsule mouth daily. VALACYCLOVIR HCL Take by mouth 0 Active (VALTREX ORAL) daily For precaution per pt . Active Problems Problem Noted Date S/P cystoscopy 08/26/2015 Chest pain, unspecified type 08/11/2015 Encounters Date Type Specialty Care Team Description 06/23/2017 Hospital Encounter Radiology Buffy Garcia Precordial pain Erin Louis NP 06/06/2017 Outside Orders Buffy Garcia Precordial pain (Primary Erin Louis NP Dx) after 04/24/2017 Social History Tobacco Use Types Packs/Day Years Used Date Never Smoker Alcohol Use Drinks/Week oz/Week Comments No Sex Assigned at Date Recorded Not on file Job Start Date Occupation Industry Not on file Not on file Not on file Travel History Travel Start Travel End No recent travel history available. Last Filed Vital Signs Not on file Plan of Treatment Not on file Procedures Procedure Name Priority Date/Time Associated Diagnosis Comments XR CHEST 2 VIEWS Routine 06/23/2017 8:20 AM Precordial pain Results for this CDT procedure are in the results section. after 04/24/2017 Results XR Chest 2 Views (06/23/2017 8:20 AM CDT) Narrative Performed At FINAL REPORT GE RIS Chest 2 views 06/23/2017 8:01 AM CLINICAL HISTORY: R07.2 COMPARISON: 08/11/2015 FINDINGS: The lungs are clear. Cardiomediastinal contours are within normal limits. The central pulmonary vasculature is not engorged. The visualized skeleton is intact. IMPRESSION: No acute radiographic abnormalities. Signed: Radhames Diaz MD Report Verified Date/Time:06/23/2017 08:01:18 Reading Location: [facility] Radiology Reading Room Procedure Note Interface, External Ris In - 06/23/2017 8:20 AM CDT FINAL REPORT Chest 2 views 06/23/2017 8:01 AM CLINICAL HISTORY: R07.2 COMPARISON: 08/11/2015 FINDINGS: The lungs are clear. Cardiomediastinal contours are within normal limits. The central pulmonary vasculature is not engorged. The visualized skeleton is intact. IMPRESSION: No acute radiographic abnormalities. Signed: Radhames Diaz MD Report Verified Date/Time: 06/23/2017 08:01:18 Reading Location: [facility] Radiology Reading Room Performing Organization Address City/State/Zipcode Phone Number [facility] after 04/24/2017 Insurance Payer Benefit Plan / Group Subscriber ID Type Phone Address [facility] [email or web address] xxxxxxxxxxx Maps Contracted Advance Directives For more information, please contact:[place] [address] [address] [phone] Code Status Date Activated Date Inactivated Comments Full Code 08/26/2015 7:24 PM 08/27/2015 6:40 PM This code status was determined by: Patient Full Code 08/11/2015 8:42 PM 08/12/2015 2:23 PM This code status was determined by: Patient
--- OUTSIDE RECORDS SUMMARY | 2018-04-25 11:31 | XMS REPORT | Continuity of Care Document ---
:1955 Author Organization Interface Problems Problem Status Onset Classification Date Comments Source Date Reported Anxiety Active Problem 01/16/2018 [facility] Palpitations Active Problem 01/16/2018 [facility] Thyroid nodule Active Problem 01/16/2018 [facility] Pain of left foot Active Problem 01/16/2018 [facility] Pelvic pain Active Problem 01/16/2018 [facility] Pain in right Active Problem 01/16/2018 [facility] foot [facility] Other depression Active Problem 01/16/2018 [facility] Post herpetic Active Problem 01/16/2018 [facility] neuralgia [facility] Recurrent UTI Active Diagnosis 01/16/2018 [facility] Leg edema Active Diagnosis 08/26/2016 [facility] Erosion of Active Problem 01/16/2018 [facility] vaginal mesh, [facility] sequela Encounter for Active Diagnosis 08/26/2016 [facility] general adult [facility] medical examination without abnormal findings Pre-op exam Active Diagnosis 08/23/2017 [facility] PVC Active Diagnosis 08/23/2017 [facility] Weight loss Active Diagnosis 08/23/2017 [facility] Screening for Active Diagnosis 08/23/2017 [facility] breast cancer [facility] Urinary retention Active Diagnosis 08/23/2017 [facility] Screening for Active Diagnosis 08/23/2017 [facility] colon cancer [facility] Elevated Active Diagnosis 08/23/2017 [facility] hemoglobin A1c [facility] Acute cystitis Active Diagnosis 08/23/2017 [facility] without hematuria Primary Care Dysuria Active Diagnosis 08/23/2017 [facility] Bronchitis Active Diagnosis 08/23/2017 [facility] Herpes zoster Active Diagnosis 08/23/2017 [facility] without [facility] complication Pyelonephritis Active Diagnosis 08/23/2017 [facility] 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, [facility]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 Paroxysmal a-fib Active Problem 01/16/2018 [facility] Sensorineural Active Diagnosis 08/23/2017 [facility] hearing loss, Primary [facility] bilateral Urge incontinence Active Diagnosis 08/23/2017 [facility] Allergic rhinitis Active Diagnosis 08/23/2017 [facility] Nontoxic single Active Diagnosis 08/23/2017 [facility] thyroid nodule Primary [facility] Adult general Active Diagnosis 08/23/2017 [facility] medical exam [facility] Care 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 [facility] neuropathy Fatigue, Active Diagnosis 08/23/2017 [facility] unspecified type Primary Care BMI Active Diagnosis 08/23/2017 [facility] 25.0-25.9,adult Primary Care Left leg pain Active Diagnosis 08/23/2017 [facility] Acute Active Diagnosis 08/23/2017 [facility] non-recurrent [facility] maxillary sinusitis Nonintractable Active Diagnosis 08/23/2017 [facility] headache, [facility] unspecified chronicity pattern, unspecified headache type Pain of left eye Active Diagnosis 11/12/2017 [facility] Tachycardia Active Diagnosis 11/12/2017 [facility] BMI Active Diagnosis 11/12/2017 [facility] 26.0-26.9,adult [facility] Encounter for Active Diagnosis 11/12/2017 [facility] immunization [facility] MICKEY Active Problem 01/04/2018 Ashesh Cisneros Unspecified Active Diagnosis 01/16/2018 [facility] Escherichia coli [facility] [E. coli] as the cause of diseases classified elsewhere Urinary tract Active Diagnosis 01/16/2018 [facility] infection, site [facility] not specified Medications Medication Details Route Status Patient Ordering Order Source Instructions Provider Date Levaquin 1 tablet Orally Active 500 mg Orally [place] 12/21[facility] Once a day 2018 Primary Care Valacyclovir 1 tablet Orally Active 500 MG Orally [place] 10/13[facility] HCl three times a 2018 Primary day Care Augmentin 1 tablet Orally Active 875-125 MG [place] 06/30[facility] Orally every 2018 Primary 12 hrs Care Acyclovir 1 application Externally Active 5 % [place] 03/17[facility] to affected Externally 2018 Primary area Six times a Care day Valacyclovir 1 tablet Orally Active 1 GM Orally [place] 03/17[facility] HCl every 24 hrs 2018 Primary Care Lidoderm 1 patch to Externally Active 5 % [place] 03/17[facility] skin remove Externally 2018 Primary after 12 Once a day Care hours Symbicort 2 puffs Inhalation Active 80-4.5 [place] 03/04[facility] MCG/ACT 2018 Primary Inhalation Care Twice a day Tessalon 1 capsule as Orally Active 100 MG Orally [place] 03/04[facility] Perles needed Three times a 2018 Primary day Care Zithromax 2 tablets on Orally Active 250 MG Orally [place] 03/04[facility] Z-Sidney the first Once a day 2018 Primary day, then 1 Care tablet daily for 4 days Lexapro 1 tablet Orally Active 10 MG Orally [place] 02/24[facility] Once a day 2018 Primary Care Amoxicillin 1 capsule Orally Active 500 MG Orally [place] 01/25[facility] take three 2017 Primary times a day Care Cipro 1 tablet Orally Active 500 MG Orally [place] 08/30[facility] Twice a day 2017 Primary Care Flonase 1 spray in Nasally Active 50 MCG/ACT [facility] each nostril Nasally Once Primary a day Care Premarin not defined Vaginal Active 0.625 MG/GM [facility] Vaginal Primary Care Flagyl 1 tablet Orally Active 500 MG Orally [facility] twice a day Primary (bid) Care Doxycycline 1 capsule Orally Active 100 MG Orally [facility] Hyclate every 12 hrs Primary Care Flonase 1 spray in Nasally Active 50 MCG/ACT [facility] each nostril Nasally Once Primary a day Care Premarin not defined Vaginal Active 0.625 MG/GM [facility] Vaginal Primary Care Doxycycline 1 capsule Orally Active 100 MG Orally [facility] Hyclate every 12 hrs Primary Care Flagyl 1 tablet Orally Active 500 MG Orally [facility] twice a day Primary (bid) Care Flonase 1 spray in Nasally Active 50 MCG/ACT [facility] each nostril Nasally Once Primary a day Care Prozac 1 capsule in Orally Active 20 MG Orally [facility] the morning Once a day Primary Care Allergies, Adverse Reactions, Alerts Substance Category Reaction Severity Reaction Status Date Comments Source type Reported N.K.D.A. Adverse Info Not Adverse Active [facility] Reaction Available Reaction 8 [facility] Minocycline Adverse Rash Adverse Active [facility] HCl Reaction Reaction 8 [facility] Immunizations Immunization Date Given Site Status Last Comments Source Updated Flucelvax Quad 11/04/2017 completed [facility] ([facility] Results Order Results Value Reference Date Interpretation Comments Source Name Range Vital Signs Vital Sign Value Date Comments Source Systolic (mm Hg) 118 12/21/2017 [facility] Height 67 12/21/2017 [facility] Weight 166 12/21/2017 [facility] Heart Rate 79 12/21/2017 [facility] Temperature Oral (F) 97.5 F 12/21/2017 [facility] Diastolic (mm Hg) 82 12/21/2017 [facility] Systolic (mm Hg) 114 11/04/2017 [facility] Height 67 11/04/2017 [facility] Weight 166 11/04/2017 [facility] Heart Rate 73 11/04/2017 [facility] Temperature Oral (F) 97.6 F 11/04/2017 [facility] Diastolic (mm Hg) 70 11/04/2017 [facility] Systolic (mm Hg) 112 07/14/2017 [facility] Height 67 07/14/2017 [facility] Weight 161 07/14/2017 [facility] Heart Rate 71 07/14/2017 [facility] Temperature Oral (F) 98 F 07/14/2017 [facility] Diastolic (mm Hg) 68 07/14/2017 [facility] Systolic (mm Hg) 136 06/30/2017 [facility] Height 67 06/30/2017 [facility] Weight 156 06/30/2017 [facility] Heart Rate 62 06/30/2017 [facility] Temperature Oral (F) 97.8 F 06/30/2017 [facility] Diastolic (mm Hg) 78 06/30/2017 [facility] Systolic (mm Hg) 110 04/07/2017 [facility] Height 67 04/07/2017 [facility] Weight 156 04/07/2017 [facility] Heart Rate 67 04/07/2017 [facility] Temperature Oral (F) 97.7 F 04/07/2017 [facility] Diastolic (mm Hg) 72 04/07/2017 [facility] Systolic (mm Hg) 122 03/17/2017 [facility] Height 67 03/17/2017 [facility] Weight 152 03/17/2017 [facility] Heart Rate 61 03/17/2017 [facility] Temperature Oral (F) 97.9 F 03/17/2017 [facility] Diastolic (mm Hg) 74 03/17/2017 [facility] Systolic (mm Hg) 100 03/04/2017 [facility] Height 67 03/04/2017 [facility] Weight 150 03/04/2017 [facility] Heart Rate 64 03/04/2017 [facility] Temperature Oral (F) 97.9 F 03/04/2017 [facility] Diastolic (mm Hg) 60 03/04/2017 [facility] Systolic (mm Hg) 106 02/24/2017 [facility] Height 67 02/24/2017 [facility] Weight 156 02/24/2017 [facility] Heart Rate 67 02/24/2017 [facility] Temperature Oral (F) 98.1 F 02/24/2017 [facility] Diastolic (mm Hg) 62 02/24/2017 [facility] Systolic (mm Hg) 110 01/20/2017 [facility] Height 67 01/20/2017 [facility] Weight 153 01/20/2017 [facility] Heart Rate 67 01/20/2017 [facility] Temperature Oral (F) 97.7 F 01/20/2017 [facility] Diastolic (mm Hg) 78 01/20/2017 [facility] Systolic (mm Hg) 138 08/30/2016 [facility] Height 67 08/30/2016 [facility] Weight 163 08/30/2016 [facility] Heart Rate 51 08/30/2016 [facility] Temperature Oral (F) 98 F 08/30/2016 [facility] Diastolic (mm Hg) 82 08/30/2016 [facility] Systolic (mm Hg) 126 07/19/2016 [facility] Height 67 07/19/2016 [facility] Weight 164 07/19/2016 [facility] Heart Rate 59 07/19/2016 [facility] Temperature Oral (F) 97.7 F 07/19/2016 [facility] Diastolic (mm Hg) 82 07/19/2016 [facility] Systolic (mm Hg) 134 06/07/2016 [facility] Height 67 06/07/2016 [facility] Weight 165 06/07/2016 [facility] Heart Rate 66 06/07/2016 [facility] Temperature Oral (F) 98.2 F 06/07/2016 [facility] Diastolic (mm Hg) 84 06/07/2016 [facility] Systolic (mm Hg) 130 02/20/2016 [facility] Height 67 02/20/2016 [facility] Weight 163 02/20/2016 [facility] Heart Rate 80 02/20/2016 [facility] Temperature Oral (F) 97.9 F 02/20/2016 [facility] Diastolic (mm Hg) 84 02/20/2016 [facility] Encounters Location Location Encounter Encounter Reason Attending ADM DC Status Source Details Type Number For Provider Date Date Visit [facility] establish [id number] 02/19 02/19 [facility] [id number] /[facility] [place] [phone] Care [id number] [facility] establish [id number] 02/19 02/19 [facility] [id number] /2016 [facility] [place] [id number] Care [id number] [facility] establish [id number] 02/19 02/19 [facility] [id number] /2016 [facility] [id number] Care [id number] [facility] establish [id number] 02/19 02/19 [facility] [id number] /2016 [facility] [place] [id number] Care [id number] [facility] referral [id number] 03/09 03/09 [facility] to out of [id number] /2016 [facility] [place] network [id number] Care [id number] [facility] referral [id number] 03/09 03/09 [facility] Primary to out of [id number] /2016 [facility] [place] network [phone] Care [id number] [facility] referral [id number] 03/09 03/09 [facility] Primary to out of [id number] [facility] [place] network [phone] Care [id number] [facility] Referral/A [id number] 04/16 04/16 [facility] Primary ppeal [id number] [facility] [place] [id number] Care [id number] [facility] Referral/A [id number] 04/16 04/16 [facility] Primary ppeal [id number] /2016 [facility] [place] [id number] Care [id number] [facility] pt update [id number] 04/19 04/19 [facility] Primary [id number] /2016 [facility] [place] [phone] Care [id number] Procedures Procedure Code Date Perfomer Comments Source
--- OUTSIDE RECORDS SUMMARY | 2018-04-25 11:31 | XMS REPORT ---
:1955 Author Organization [employer] Care Team Providers Name Role Phone Carol Ann Katz Provider Role Unavailable Allergies No Known Allergies Problems Problem Type Condition Code Onset Dates Condition Status Problem Thyroid nodule E04.1 Active Problem Palpitations R00.2 Active Problem Anxiety F41.9 Active Problem Pelvic pain R10.2 Active Problem Pain in right foot M79.671 Active Problem Pain of left foot M79.672 Active Medications No Known Medications Results No Known Results Summary Purpose [employer]ClinicalWorks Submission
--- OUTSIDE RECORDS SUMMARY | 2018-04-25 11:31 | XMS REPORT ---
:1955 Author Organization [employer] Care Team Providers Name Role Phone Carol Ann Katz Provider Role Unavailable Allergies No Known Allergies Problems Problem Type Condition Code Onset Dates Condition Status Problem Anxiety F41.9 Active Problem Palpitations R00.2 Active Problem Thyroid nodule E04.1 Active Problem Pain of left foot M79.672 Active Problem Pelvic pain R10.2 Active Problem Pain in right foot M79.671 Active Medications No Known Medications Results No Known Results Summary Purpose [employer]ClinicalWorks Submission
--- OUTSIDE RECORDS SUMMARY | 2018-04-25 11:31 | XMS REPORT ---
:1955 Author Organization [employer] Care Team Providers Name Role Phone Carol Ann Katz Provider Role Unavailable Allergies, Adverse Reactions, Alerts Substance Reaction Event Type N.K.D.A. Info Not Available Non Drug Allergy Problems Problem Type Condition Code Onset Dates Condition Status Assessment Encounter for general adult medical Z00.00 Active examination without abnormal findings Assessment Thyroid nodule E04.1 Active Assessment Anxiety F41.9 Active Problem Anxiety F41.9 Active Problem Palpitations R00.2 Active Problem Thyroid nodule E04.1 Active Problem Pain of left foot M79.672 Active Assessment Palpitations R00.2 Active Problem Pelvic pain R10.2 Active Problem Pain in right foot M79.671 Active Medications Medication Code System Code Instructions Start Date End Date Status Dosage Flonase [facility] 67968-358 50 MCG/ACT Active 1 spray in 3-01 Nasally Once a each day nostril Vital Signs Date/Time: June 07, 2016 Blood Pressure Systolic 134 mm Hg Height 67 in Weight 165 lbs BMI 25.84 Index Cardiac Monitoring Heart Rate 66 /min Temperature 98.2 F Blood Pressure Diastolic 84 mm Hg Results No Known Results Summary Purpose [employer]ClinicalWorks Submission
--- OUTSIDE RECORDS SUMMARY | 2018-04-25 11:31 | XMS REPORT ---
:1955 Author Organization [employer] Care Team Providers Name Role Phone Carol Ann Katz Provider Role Unavailable Allergies, Adverse Reactions, Alerts Substance Reaction Event Type N.K.D.A. 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 Problem Anxiety F41.9 Active Problem Palpitations R00.2 Active Problem Thyroid nodule E04.1 Active Problem Pain of left foot M79.672 Active Assessment Pelvic pain R10.2 Active Problem Pelvic pain R10.2 Active Problem Pain in right foot M79.671 Active Medications Medication Code Code Instructions Start End Date Status Dosage System Date Flonase NDC 24923-34 50 MCG/ACT Active 1 spray in 53-01 Nasally Once a each day nostril Premarin NDC 12344-14 0.625 MG/GM Active not defined 72-21 Vaginal Flagyl NDC 11760-24 500 MG Orally Active 1 tablet 21-31 twice a day (bid) Doxycycline NDC 23284-64 100 MG Orally Active 1 capsule Hyclate 42-05 every 12 hrs Vital Signs Date/Time: July 19, 2016 Blood Pressure Systolic 126 mm Hg Height 67 in Weight 164 lbs BMI 25.68 Index Cardiac Monitoring Heart Rate 59 /min Temperature 97.7 F Blood Pressure Diastolic 82 mm Hg Results No Known Results Summary Purpose [employer]ClinicalWorks Submission
--- OUTSIDE RECORDS SUMMARY | 2018-04-25 11:31 | XMS REPORT ---
[...] Pain of left foot M79.672 Active Medications Medication Code System Code Instructions Start End Date Status Dosage Date Amoxicillin [facility] 86291526257 500 MG Orally Jan 25, Feb 04, Active 1 capsule take three times 2016 2016 a day Results No Known Results Summary Purpose [employer]ClinicalWorks Submission
--- OUTSIDE RECORDS SUMMARY | 2018-04-25 11:32 | XMS REPORT ---
:1955 Author Organization [employer] Care Team Providers Name Role Phone SterlingCarol Ann Provider Role Unavailable Allergies, Adverse Reactions, Alerts Substance Reaction Event Type N.K.D.A. 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 Problem Palpitations R00.2 Active Problem Pain in right foot M79.671 Active Problem Anxiety F41.9 Active Problem Thyroid nodule E04.1 Active Assessment Paroxysmal a-fib I48.0 Active Assessment Sensorineural hearing loss, H90.3 Active bilateral Assessment Urge incontinence N39.41 Active Assessment Allergic rhinitis J30.9 Active Assessment Nontoxic single thyroid nodule E04.1 Active Assessment Adult general medical exam Z00.00 Active Assessment 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 Assessment Other depression F32.89 Active Assessment Anxiety F41.9 Active Assessment Fatigue, unspecified type R53.83 Active Medications Medication Code System Code Instructions Start End Date Status Dosage Date Flonase [facility] 2001 99142712203 50 MCG/ACT Active 1 spray in Nasally Once a each day nostril Premarin [facility] 2001 45627525325 0.625 MG/GM Active not defined Vaginal Lexapro ND 78968762370 10 MG Orally Feb 24, Active 1 tablet Once a day 2017 Vital Signs Date/Time: Feb 24, 2017 Blood Pressure Systolic 106 mm Hg Height 67 in Weight 156 lbs BMI 24.43 Index Cardiac Monitoring Heart Rate 67 /min Temperature 98.1 F Blood Pressure Diastolic 62 mm Hg Results No Known Results Summary Purpose [employer]ClinicalWorks Submission
--- OUTSIDE RECORDS SUMMARY | 2018-04-25 11:32 | XMS REPORT ---
:1955 Author Organization [employer] Care Team Providers Name Role Phone Carol Ann Katz Provider Role Unavailable Allergies, Adverse Reactions, Alerts Substance Reaction Event Type N.K.D.A. 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 Problem Palpitations R00.2 Active Problem Pain in right foot M79.671 Active Problem Anxiety F41.9 Active Problem Thyroid nodule E04.1 Active Medications Medication Code Code Instructions Start End Status Dosage System Date Date Acyclovir [facility] 60985409234 5 % Externally Mar 17, Active 1 application Six times a day 2018 to affected area Lexapro [place] 25715939382 10 MG Orally Feb 24, Active 1 tablet Once a day 2018 Premarin ND 45820859559 0.625 MG/GM Active not defined Vaginal Flonase ND 43556136625 50 MCG/ACT Active 1 spray in Nasally Once a each nostril day Vital Signs Date/Time: Apr 07, 2017 Blood Pressure Systolic 110 mm Hg Height 67 in Weight 156 lbs BMI 24.43 Index Cardiac Monitoring Heart Rate 67 /min Temperature 97.7 F Blood Pressure Diastolic 72 mm Hg Results No Known Results Summary Purpose [employer]ClinicalWorks Submission
--- OUTSIDE RECORDS SUMMARY | 2018-04-25 11:32 | XMS REPORT ---
:1955 Author Organization [employer] Care Team Providers Name Role Phone Carol Ann Katz Provider Role Unavailable Allergies No Known Allergies Problems Problem Type Condition Code Onset Dates Condition Status Problem Pelvic pain R10.2 Active Problem Other depression F32.89 Active Problem Anxiety F41.9 Active Problem Post herpetic neuralgia B02.29 Active Problem Pain in right foot M79.671 Active Problem Pain of left foot M79.672 Active Problem Thyroid nodule E04.1 Active Problem Palpitations R00.2 Active Medications No Known Medications Results No Known Results Summary Purpose [employer]ClinicalWorks Submission
--- OUTSIDE RECORDS SUMMARY | 2018-04-25 11:32 | XMS REPORT ---
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 Problem Post herpetic neuralgia B02.29 Active Problem Other depression F32.89 Active Problem Erosion of vaginal mesh, 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 Problem Palpitations R00.2 Active Problem Pain in right foot M79.671 Active Problem Anxiety F41.9 Active Problem Thyroid nodule E04.1 Active Medications Medication Code System Code Instructions Start End Date Status Dosage Date Flonase [facility] 46607177065 50 MCG/ACT Active 1 spray in Nasally Once a each day nostril Premarin ND 43627198179 0.625 MG/GM Active not defined Vaginal Prozac [facility] 79856124640 20 MG Orally Active 1 capsule Once a day in the morning Vital Signs Date/Time: July 14, 2017 Blood Pressure Systolic 112 mm Hg Height 67 in Weight 161 lbs BMI 25.21 Index Cardiac Monitoring Heart Rate 71 /min Temperature 98 F Blood Pressure Diastolic 68 mm Hg Results No Known Results Summary Purpose [employer]ClinicalWorks Submission
--- OUTSIDE RECORDS SUMMARY | 2018-04-25 11:32 | XMS REPORT ---
[...] E04.1 Active Problem Palpitations R00.2 Active Medications Medication Code System Code Instructions Start Date End Date Status Dosage Symbicort [facility] 18659304619 80-4.5 MCG/ACT Mar 04, Active 2 puffs Inhalation Twice 2018 a day Results No Known Results Summary Purpose [employer]ClinicalWorks Submission
--- OUTSIDE RECORDS SUMMARY | 2018-04-25 11:32 | XMS REPORT ---
:1955 Author Organization eClinicalWorks Care Team Providers Name Role Phone Carol Ann Katz Provider Role Unavailable Allergies, Adverse Reactions, Alerts Substance Reaction Event Type N.K.D.A. 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 53547121695 50 MCG/ACT Active 1 spray in Nasally Once a each day nostril Premarin [facility] 86583395558 0.625 MG/GM Active not defined Vaginal Vital Signs Date/Time: Jan 20, 2017 Blood Pressure Systolic 110 mm Hg Height 67 in Weight 153 lbs BMI 23.96 Index Cardiac Monitoring Heart Rate 67 /min Temperature 97.7 F Blood Pressure Diastolic 78 mm Hg Results No Known Results Summary Purpose eClinicalWorks Submission
--- OUTSIDE RECORDS SUMMARY | 2018-04-25 11:32 | XMS REPORT ---
:1955 Author Organization eClinicalWorks Care Team Providers Name Role Phone Carol Ann Katz Provider Role Unavailable Allergies, Adverse Reactions, Alerts Substance Reaction Event Type N.K.D.A. Info Not Available Non Drug Allergy Problems Problem Type Condition Code Onset Dates Condition Status Assessment Acute cystitis without hematuria N30.00 Active Problem Pain of left foot M79.672 [...] Start End Status Dosage System Date Date Doxycycline [facility] 51531560160 100 MG Orally Active 1 capsule Hyclate every 12 hrs Premarin ND 00097463539 0.625 MG/GM Active not Vaginal defined Flagyl ND 91203895834 500 MG Orally Active 1 tablet twice a day (bid) Flonase ND 55088236102 50 MCG/ACT Active 1 spray in Nasally Once a each day nostril Cipro ND 85843409922 500 MG Orally August 30August Active 1 tablet Twice a day 2016 Vital Signs Date/Time: August 30, 2016 Blood Pressure Systolic 138 mm Hg Height 67 in Weight 163 lbs BMI 25.53 Index Cardiac Monitoring Heart Rate 51 /min Temperature 98 F Blood Pressure Diastolic 82 mm Hg Results No Known Results Summary Purpose eClinicalWorks Submission
--- OUTSIDE RECORDS SUMMARY | 2018-04-25 11:32 | XMS REPORT ---
:1955 Author Organization eClinicalWorks Care Team Providers Name Role Phone StrelingCarol Ann Provider Role Unavailable Allergies, Adverse Reactions, Alerts Substance Reaction Event Type N.K.D.A. Info Not Available Non Drug Allergy Problems Problem Type Condition Code Onset Dates Condition Status Assessment Bronchitis J40 Active Problem Pain of left foot M79.672 [...] Start End Status Dosage System Date Date Flonase [facility] 14809754401 50 MCG/ACT Active 1 spray in Nasally Once a each day nostril Lexapro ND 93838159156 10 MG Orally Feb 24, Active 1 tablet Once a day 2018 Tessalon ND 61915041710 100 MG Orally Mar 04, Mar 14, Active 1 capsule Perles Three times a 2017 2018 as needed day Symbicort ND 61930269439 80-4.5 MCG/ACT Mar 04, Apr 03, Active 2 puffs Inhalation Twice 2017 2017 a day Premarin ND 34174890889 0.625 MG/GM Active not Vaginal defined Zithromax ND 25034769308 250 MG Orally Mar 04, Mar 09, Active 2 tablets Z-Sidney Once a day 2017 2017 on the first day, then 1 tablet daily for 4 days Vital Signs Date/Time: Mar 04, 2017 Blood Pressure Systolic 100 mm Hg Height 67 in Weight 150 lbs BMI 23.49 Index Cardiac Monitoring Heart Rate 64 /min Temperature 97.9 F Blood Pressure Diastolic 60 mm Hg Results No Known Results Summary Purpose eClinicalWorks Submission
--- OUTSIDE RECORDS SUMMARY | 2018-04-25 11:32 | XMS REPORT ---
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 B96.20 Active coli] as the cause of diseases classified elsewhere Assessment Recurrent UTI N39.0 Active Assessment Urinary tract infection, site not N39.0 Active specified Assessment Paroxysmal a-fib I48.0 Active Medications Medication Code System Code Instructions Start End Date Status Dosage Date Prozac [facility] 21525623693 20 MG Orally Active 1 capsule Once a day in the morning Flonase ND 42108544430 50 MCG/ACT Active 1 spray in Nasally Once a each day nostril Premarin ND 26769607459 0.625 MG/GM Active not defined Vaginal Levaquin ND 63601422633 500 mg Orally Dec 21Dec 31, Active 1 tablet Once a day 2017 2017 Vital Signs Date/Time: Dec 21, 2017 Blood Pressure Systolic 118 mm Hg Height 67 in Weight 166 lbs BMI 26.00 Index Cardiac Monitoring Heart Rate 79 /min Temperature 97.5 F Blood Pressure Diastolic 82 mm Hg Results No Known Results Summary Purpose eClinicalWorks Submission
--- OUTSIDE RECORDS SUMMARY | 2018-04-25 11:32 | XMS REPORT ---
:1955 Author Organization eClinicalWorks Care Team Providers Name Role Phone Bry Cisneros Provider Role Unavailable Allergies No Known Allergies Problems Problem Type Condition Code Onset Dates Condition Status Problem MICKEY (obstructive sleep apnea) G47.33 Active Medications No Known Medications Results No Known Results Summary Purpose eClinicalWorks Submission
--- OUTSIDE RECORDS SUMMARY | 2018-04-25 11:32 | XMS REPORT ---
:1955 [facility] Team Providers Name Role Phone Carol Ann Katz Provider Role Unavailable Allergies, Adverse Reactions, Alerts Substance Reaction Event Type N.K.D.A. 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 Problem Palpitations R00.2 Active Problem Pain in right foot M79.671 Active Problem Anxiety F41.9 Active Problem Thyroid nodule E04.1 Active Assessment Palpitations R00.2 Active Assessment Left leg pain M79.605 Active Assessment Acute non-recurrent maxillary J01.00 Active sinusitis Assessment Nonintractable headache, R51 Active unspecified chronicity pattern, unspecified headache type Medications Medication Code Code Instructions Start End Status Dosage System Date Date Augmentin [facility] 82416822469 875-125 MG June 30, July 10, Active 1 tablet Orally every 12 2017 2018 hrs Symbicort ND 70778413217 80-4.5 MCG/ACT Mar 04, Active 2 puffs Inhalation Twice 2018 a day Lexapro ND 44119579105 10 MG Orally Feb 24, Active 1 tablet Once a day 2018 Premarin ND 69182877677 0.625 MG/GM Active not defined Vaginal Acyclovir ND 41473941303 5 % Externally Mar 17, Active 1 application Six times a day 2018 to affected area Prozac [facility] 10707094759 20 MG Orally Active 1 capsule in Once a day the morning Flonase ND 56752991013 50 MCG/ACT Active 1 spray in Nasally Once a each nostril day Vital Signs Date/Time: June 30, 2017 Blood Pressure Systolic 136 mm Hg Height 67 in Weight 156 lbs BMI 24.43 Index Cardiac Monitoring Heart Rate 62 /min Temperature 97.8 F Blood Pressure Diastolic 78 mm Hg Results No Known Results Summary Purpose eClinicalWorks Submission
--- OUTSIDE RECORDS SUMMARY | 2018-04-25 11:33 | XMS REPORT ---
:1955 Author Organization eClinicalWorks Care Team Providers Name Role Phone Carol Ann Katz Provider Role Unavailable Allergies No Known Allergies Problems Problem Type Condition Code Onset Dates Condition Status Problem Pelvic pain R10.2 Active Problem Pain in right foot M79.671 Active Problem Palpitations R00.2 Active Problem Pain of left foot M79.672 Active Medications No Known Medications Results No Known Results Summary Purpose eClinicalWorks Submission
--- OUTSIDE RECORDS SUMMARY | 2018-04-25 11:33 | XMS REPORT ---
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
--- OUTSIDE RECORDS SUMMARY | 2018-04-25 11:33 | XMS REPORT ---
:1955 Author Organization eClinicalWorks Care Team Providers Name Role Phone Carol Ann Katz Provider Role Unavailable Encounters Encounter Location Date [facility] care [facility] Feb [facility], 2016 [facility] Mar 09, 2016 Problems Problem Type Condition ICD-9 Code Onset Dates Condition Status Problem Pelvic pain R10.2 Active Problem Pain in right foot M79.671 Active Problem Palpitations R00.2 Active Problem Pain of left foot M79.672 Active Social History Social History Element Qualifiers Date Reported Tobacco Use: . Are you a: never smoker Feb 20, 2016 Do you drink alcohol? . Status: No Feb 20, 2016 Summary Purpose eClinicalWorks Submission
--- OUTSIDE RECORDS SUMMARY | 2018-04-25 11:33 | XMS REPORT ---
:1955 Author Organization eClinicalWorks Care Team Providers Name Role Phone Carol Ann Katz Provider Role Unavailable Encounters Encounter Location Date pt [facility] April 19, 2016 [facility] Feb 20, 2016 [facility] Mar 09, 2016 [facility] April 16, 2016 Problems Problem Type Condition ICD-9 Code [...]
--- OUTSIDE RECORDS SUMMARY | 2018-04-25 11:33 | XMS REPORT ---
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 Problem Palpitations R00.2 Active Problem Pain in right foot M79.671 Active Problem Anxiety F41.9 Active Problem Thyroid nodule E04.1 Active Medications Medication Code Code Instructions Start End Status Dosage System Date Date Lexapro [facility] 19959428930 10 MG Orally Feb 24, Active 1 tablet Once a day 2017 Symbicort ND 90627936890 80-4.5 MCG/ACT Mar 04Mar Active 2 puffs Inhalation 2017, Twice a day 2017 Valacyclovir ND 85203339199 1 GM Orally Mar 17Mar Active 1 tablet HCl every 24 hrs 2017 Acyclovir ND 34584251944 5 % Externally Mar 17, Active 1 application Six times a day 2017 to affected area Flonase ND 43305748366 50 MCG/ACT Active 1 spray in Nasally Once a each nostril day Premarin ND 91437421738 0.625 MG/GM Active not defined Vaginal Lidoderm ND 80677614388 5 % Externally Mar 17Mar Active 1 patch to Once a day 2017 12, skin remove 2017 after 12 hours Vital Signs Date/Time: Mar 17, 2017 Blood Pressure Systolic 122 mm Hg Height 67 in Weight 152 lbs BMI 23.80 Index Cardiac Monitoring Heart Rate 61 /min Temperature 97.9 F Blood Pressure Diastolic 74 mm Hg Results No Known Results Summary Purpose eClinicalWorks Submission
--- OUTSIDE RECORDS SUMMARY | 2018-04-25 11:33 | XMS REPORT ---
:1955 Author Organization eClinicalWorks Care Team Providers Name Role Phone Carol Ann Katz Provider Role Unavailable Allergies, Adverse Reactions, Alerts Substance Reaction Event Type N.K.D.A. Info Not Available Non Drug Allergy Encounters [facility] Problems Problem Type Condition ICD-9 Code Onset Dates Condition Status Assessment Pain of left foot M79.672 Active Problem Pelvic pain R10.2 Active Problem Pain in right foot M79.671 Active Problem Palpitations R00.2 Active Assessment Pelvic pain R10.2 Active Assessment Pain in right foot M79.671 Active Problem Pain of left foot M79.672 Active Assessment Palpitations R00.2 Active Social History Social History Element Qualifiers Date Reported Tobacco Use: . Are you a: never smoker Feb 20, 2016 Do you drink alcohol? . Status: No Feb 20, 2016 Vital Signs Date/Time: Feb 20, 2016 Blood Pressure Systolic 130 mm Hg Height 67 in Weight 163 lbs Cardiac Monitoring Heart Rate 80 /min Temperature 97.9 F Blood Pressure Diastolic 84 mm Hg Summary Purpose eClinicalWorks Submission
--- OUTSIDE RECORDS SUMMARY | 2018-04-25 11:33 | XMS REPORT ---
[...] Start Date End Date Status Dosage Flonase [facility] 54349-202 50 MCG/ACT Active 1 spray in 3-01 Nasally Once a each day nostril Results No Known Results Summary Purpose eClinicalWorks Submission
--- OUTSIDE RECORDS SUMMARY | 2018-04-25 11:33 | XMS REPORT ---
:1955 [facility] [address] [place] [address] [address] [place] [address] Care Team Providers Name Role Phone Unavailable Unavailable Unavailable Problems This patient has no known problems. Allergies, Adverse Reactions, Alerts This patient has no known allergies or adverse reactions. Medications This patient has no known medications. Results Test Description Test Time Test Comments Text Results Atomic Results Result Comments RAD, CHEST, 2 2017-06-23 08:01:00 Reason for FINAL REPORT PATIENT ID: VIEWS Exam:->R07.2 [id number] Chest 2 views 06/23/2017 8:01 AM CLINICAL HISTORY: R07.2 COMPARISON: 08/11/2015 FINDINGS: The lungs are clear. Cardiomediastinal contours are within normal limits. The central pulmonary vasculature is not engorged. The visualized skeleton is intact. IMPRESSION: No acute radiographic abnormalities. Signed: Radhames Diaz Verified Date/Time: 06/23/2017 08:01:18 Reading Location: [facility] Radiology Reading Room
--- OUTSIDE RECORDS SUMMARY | 2018-04-25 11:33 | XMS REPORT ---
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 Problem Palpitations R00.2 Active Problem Pain in right foot M79.671 Active Problem Anxiety F41.9 Active Problem Thyroid nodule E04.1 Active Assessment Pain of left eye H57.12 Active Assessment Tachycardia R00.0 Active Assessment BMI 26.0-26.9,adult Z68.26 Active Assessment Erosion of vaginal mesh, 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 Assessment Encounter for immunization Z23 Active Assessment Post herpetic neuralgia B02.29 Active Medications Medication Code System Code Instructions Start End Date Status Dosage Date Prozac ND 27563589998 20 MG Orally Active 1 capsule Once a day in the morning Premarin NDC 66732887946 0.625 MG/GM Active not defined Vaginal Flonase ND 06858923855 50 MCG/ACT Active 1 spray in Nasally Once a each day nostril Vital Signs Date/Time: Nov 04, 2017 Blood Pressure Systolic 114 mm Hg Height 67 in Weight 166 lbs BMI 26.00 Index Cardiac Monitoring Heart Rate 73 /min Temperature 97.6 F Blood Pressure Diastolic 70 mm Hg Results No Known Results Immunizations Vaccine Administration Date Flucelvax Quad (Med) Nov 04, 2017 Summary Purpose eClinicalWorks Submission
--- OUTSIDE RECORDS SUMMARY | 2018-04-25 11:33 | XMS REPORT ---
:1955 Author Organization eClinicalWorks Care Team Providers Name Role Phone Carol Ann Katz Provider Role Unavailable Encounters Encounter Location Date [facility] Feb 20, 2016 [facility] Mar 09, 2016 [facility] April 16, 2016 Problems Problem [...]
--- OUTSIDE RECORDS SUMMARY | 2018-04-25 11:33 | XMS REPORT ---
[...] Start End Date Status Dosage Date Prozac [facility] 25271390829 20 MG Orally Active 1 capsule Once a day in the morning Flonase ND 25375343672 50 MCG/ACT Active 1 spray in Nasally Once a each day nostril Premarin ND 69486240363 0.625 MG/GM Active not defined Vaginal Levaquin ND 69757329970 500 mg Orally Dec 21Dec 31, Active [...]
--- OUTSIDE RECORDS SUMMARY | 2018-04-25 11:33 | XMS REPORT ---
[...] Start End Status Dosage System Date Date Valacyclovir HCl [facility] 62510018819 500 MG Orally Oct 13Oct Active 1 tablet three times a 2017 Results No Known Results Summary Purpose eClinicalWorks Submission
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
[2018-04-25 13:43] VITALS: BP 172/100; TEMP 97.2; O2SAT 100
== END 2018-04-25 13:27 | disposition home or self-care (01) ==
LOC: ER 11:26
DX: S06.0X0A Concussion without loss of consciousness, initial encounter (principal); W22.8XXA Striking against or struck by other objects, initial encounter; Y92.89 Other specified places as the place of occurrence of the external cause; Z88.6 Allergy status to analgesic agent; Z88.1 Allergy status to other antibiotic agents; Z88.5 Allergy status to narcotic agent; Z88.2 Allergy status to sulfonamides; Z88.8 Allergy status to other drugs, medicaments and biological substances
CPT/HCPCS: 70450; 72125; 99283

== ENCOUNTER 2018-08-22 19:44 | Emergency (ER) | payer OTHER ==
--- OUTSIDE RECORDS SUMMARY | 2018-08-22 19:48 | XMS REPORT | Clinical Summary ---
:1955 Author Organization [facility] Address [address] [place] [address] Care Team Providers Name Role Phone Lauren [...] cystoscopy 08/26/2015 Chest pain, unspecified type 08/11/2015 Social History Tobacco Use Types Packs/Day Years Used Date Never Smoker Alcohol Use Drinks/Week oz/Week Comments No Sex Assigned at Date Recorded Not on file Job Start Date Occupation Industry Not on file Not on file Not on file Travel History Travel Start Travel End No recent travel history available. Last Filed Vital Signs Not on file Plan of Treatment Not on file Results Not on fileafter 08/21/2017 Insurance Payer Benefit Plan / Group Subscriber ID Type Phone Address [employer] xxxxxxxxxxx Maps Contracted Advance Directives For more information, please contact:[place] [address] [address] [place], [place] [phone] Code Status Date Activated Date Inactivated Comments Full Code 08/26/2015 7:24 PM 08/27/2015 6:40 PM This code status was determined by: Patient Full Code 08/11/2015 8:42 PM 08/12/2015 2:23 PM This code status was determined by: Patient
--- OUTSIDE RECORDS SUMMARY | 2018-08-22 19:48 | XMS REPORT | Continuity of Care Document ---
:1955 Author Organization [facility] Care Team Providers Name Role Phone [employer] Information T[facility] Unavailable Unavailable Problems Problem Status Onset Classification Date Comments Source Date Reported Anxiety Active Problem 05/13/2018 [facility] Palpitations Active Problem 05/13/2018 [facility] Thyroid nodule Active Problem 05/13/2018 [facility] Pain of left foot Active Problem 05/13/2018 [facility] Pelvic pain Active Problem 05/13/2018 [facility] Pain in right Active Problem 05/13/2018 [place] foot [facility] Encounter for Active Diagnosis 08/26/2016 [place] general adult [facility] medical examination without abnormal findings Recurrent UTI Active Diagnosis 01/16/2018 [facility] Leg edema Active Diagnosis 08/26/2016 [facility] Erosion of Active Problem 05/13/2018 [place] vaginal mesh, [facility] sequela Other depression Active Problem 05/13/2018 [facility] Post herpetic Active Problem 05/13/2018 [place] neuralgia [facility] MICKEY Active Problem 01/04/2018 [facility] Bronchitis Active Diagnosis 08/23/2017 [facility] Dysuria Active Diagnosis 08/23/2017 [facility] Left leg pain Active Diagnosis 08/23/2017 [facility] Acute Active Diagnosis 08/23/2017 [place] non-recurrent [facility] maxillary sinusitis Nonintractable Active Diagnosis 08/23/2017 [place] headache, [facility] unspecified chronicity pattern, unspecified headache type Paroxysmal a-fib Active Problem 05/13/2018 [facility] Unspecified Active Diagnosis 01/16/2018 [place] Escherichia coli [facility] [E. coli] as the cause of diseases classified elsewhere Urinary tract Active Diagnosis 01/16/2018 [place] infection, site [facility] not specified Pre-op exam Active Diagnosis 08/23/2017 [facility] PVC Active Diagnosis 08/23/2017 [facility] Weight loss Active Diagnosis 08/23/2017 [facility] Screening for Active Diagnosis 08/23/2017 [place] breast cancer [facility] Urinary retention Active Diagnosis 08/23/2017 [facility] Screening for Active Diagnosis 08/23/2017 [place] colon cancer [facility] Elevated Active Diagnosis 08/23/2017 [place] hemoglobin A1c Primary [facility] Acute cystitis Active Diagnosis 08/23/2017 [place] without hematuria Primary [facility] Pain of left eye Active Diagnosis 11/12/2017 [facility] Tachycardia Active Diagnosis 11/12/2017 [facility] BMI Active Diagnosis 11/12/2017 [place] 26.0-26.9,adult [facility] Encounter for Active Diagnosis 11/12/2017 [place] immunization [facility] Herpes zoster Active Diagnosis 08/23/2017 [place] without [facility] complication BMI Active Diagnosis 08/23/2017 [place] 25.0-25.9,adult [facility] Care Pyelonephritis Active Diagnosis 08/23/2017 [place] 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, [facility]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 Sensorineural Active Diagnosis 08/23/2017 [place] hearing loss, Primary [facility] bilateral Urge incontinence Active Diagnosis 08/23/2017 [facility] Allergic rhinitis Active Diagnosis 08/23/2017 [facility] Nontoxic single Active Diagnosis 08/23/2017 [place] thyroid nodule Primary [facility] Adult general Active Diagnosis 08/23/2017 [place] medical exam [facility] 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 Fatigue, Active Diagnosis 08/23/2017 [place] unspecified type Primary Care Medications Medication Details Route Status Patient Ordering Order Source Instructions Provider Date Levaquin 1 tablet Orally Active 500 mg Orally [place] 12/21[facility] Once a day 2018 [facility] Valacyclovir 1 tablet Orally Active 500 MG Orally [place] 10/13[facility] HCl three times a 2018 Primary day Care Augmentin 1 tablet Orally Active 875-125 MG [place] 06/30[facility] Orally every 2018 Primary 12 hrs Care Acyclovir 1 application Externally Active 5 % [place] 03/17[facility] to affected Externally 2018 Primary area Six times a Care day Valacyclovir 1 tablet Orally Active 1 GM Orally [place] 03/17[facility] HCl every 24 hrs 2018 Primary Care Lidoderm 1 patch to Externally Active 5 % [facility] 03/17[facility] skin remove Externally 2018 Primary after 12 Once a day Care hours Symbicort 2 puffs Inhalation Active 80-4.5 [facility] 03/04[facility] MCG/ACT 2018 Primary Inhalation Care Twice a day Tessalon 1 capsule as Orally Active 100 MG Orally [place] 03/04[facility] Perles needed Three times a 2018 Primary day Care Zithromax 2 tablets on Orally Active 250 MG Orally [place] 03/04[facility] Z-Sidney the first Once a day 2018 Primary day, then 1 Care tablet daily for 4 days Lexapro 1 tablet Orally Active 10 MG Orally [place] 02/24[facility] Once a day 2018 Primary Care Amoxicillin 1 capsule Orally Active 500 MG Orally [place] 01/25[facility] take three 2017 Primary times a day Care Cipro 1 tablet Orally Active 500 MG Orally [place] 08/30[facility] Twice a day 2017 Primary Care Flonase 1 spray in Nasally Active 50 MCG/ACT [facility] each nostril Nasally Once Primary a day Care Premarin not defined Vaginal Active 0.625 MG/GM [facility] Vaginal Primary Care Flagyl 1 tablet Orally Active 500 MG Orally [facility] twice a day Primary (bid) Care Doxycycline 1 capsule Orally Active 100 MG Orally [facility] Hyclate every 12 hrs Primary Care Flonase 1 spray in Nasally Active 50 MCG/ACT [facility] each nostril Nasally Once Primary a day Care Premarin not defined Vaginal Active 0.625 MG/GM [facility] Vaginal Primary Care Prozac 1 capsule in Orally Active 20 MG Orally [facility] the morning Once a day Primary Care Doxycycline 1 capsule Orally Active 100 MG Orally [facility] Hyclate every 12 hrs Primary Care Flagyl 1 tablet Orally Active 500 MG Orally [facility] twice a day Primary (bid) Care Flonase 1 spray in Nasally Active 50 MCG/ACT [facility] each nostril Nasally Once Primary a day Care Allergies, Adverse Reactions, Alerts Substance Category Reaction Severity Reaction Status Date Comments Source type Reported N.K.D.A. Adverse Info Not Adverse Active [place] Reaction Available Reaction 8 [facility] Minocycline Adverse Rash Adverse Active [place] HCl Reaction Reaction 8 [facility] Immunizations Immunization Date Given Site Status Last Comments Source Updated Flucelvax Quad 11/04/2017 completed [place] (Med) [facility] Results No Data Provided for This Section Pathology Reports No Data Provided for This Section Diagnostic Reports No Data Provided for This Section Consultation Notes No Data Provided for This Section Discharge Summaries No Data Provided for This Section History and Physicals No Data Provided for This Section Vital Signs Vital Sign Value Date Comments Source Systolic (mm Hg) 118 12/21/2017 [facility] Height 67 12/21/2017 [facility] Weight 166 12/21/2017 [facility] Heart Rate 79 12/21/2017 [facility] Temperature Oral (F) 97.5 F 12/21/2017 [facility] Diastolic (mm Hg) 82 12/21/2017 [facility] Systolic (mm Hg) 114 11/04/2017 [facility] Height 67 11/04/2017 [facility] Weight 166 11/04/2017 [facility] Heart Rate 73 11/04/2017 [facility] Temperature Oral (F) 97.6 F 11/04/2017 [facility] Diastolic (mm Hg) 70 11/04/2017 [facility] Systolic (mm Hg) 112 07/14/2017 [facility] Height 67 07/14/2017 [facility] Weight 161 07/14/2017 [facility] Heart Rate 71 07/14/2017 [facility] Temperature Oral (F) 98 F 07/14/2017 [facility] Diastolic (mm Hg) 68 07/14/2017 [facility] Systolic (mm Hg) 136 06/30/2017 [facility] Height 67 06/30/2017 [facility] Weight 156 06/30/2017 [facility] Heart Rate 62 06/30/2017 [facility] Temperature Oral (F) 97.8 F 06/30/2017 [facility] Diastolic (mm Hg) 78 06/30/2017 [facility] Systolic (mm Hg) 110 04/07/2017 [facility] Height 67 04/07/2017 [facility] Weight 156 04/07/2017 [facility] Heart Rate 67 04/07/2017 [facility] Temperature Oral (F) 97.7 F 04/07/2017 [facility] Diastolic (mm Hg) 72 04/07/2017 [facility] Systolic (mm Hg) 122 03/17/2017 [facility] Height 67 03/17/2017 [facility] Weight 152 03/17/2017 [facility] Heart Rate 61 03/17/2017 [facility] Temperature Oral (F) 97.9 F 03/17/2017 [facility] Diastolic (mm Hg) 74 03/17/2017 [facility] Systolic (mm Hg) 100 03/04/2017 [facility] Height 67 03/04/2017 [facility] Weight 150 03/04/2017 [facility] Heart Rate 64 03/04/2017 [facility] Temperature Oral (F) 97.9 F 03/04/2017 [facility] Diastolic (mm Hg) 60 03/04/2017 [facility] Systolic (mm Hg) 106 02/24/2017 [facility] Height 67 02/24/2017 [facility] Weight 156 02/24/2017 [facility] Heart Rate 67 02/24/2017 [facility] Temperature Oral (F) 98.1 F 02/24/2017 [facility] Diastolic (mm Hg) 62 02/24/2017 [facility] Systolic (mm Hg) 110 01/20/2017 [facility] Height 67 01/20/2017 [facility] Weight 153 01/20/2017 [facility] Heart Rate 67 01/20/2017 [facility] Temperature Oral (F) 97.7 F 01/20/2017 [facility] Diastolic (mm Hg) 78 01/20/2017 [facility] Systolic (mm Hg) 138 08/30/2016 [facility] Height 67 08/30/2016 [facility] Weight 163 08/30/2016 [facility] Heart Rate 51 08/30/2016 [facility] Temperature Oral (F) 98 F 08/30/2016 [facility] Diastolic (mm Hg) 82 08/30/2016 [facility] Systolic (mm Hg) 126 07/19/2016 [facility] Height 67 07/19/2016 [facility] Weight 164 07/19/2016 [facility] Heart Rate 59 07/19/2016 [facility] Temperature Oral (F) 97.7 F 07/19/2016 [facility] Diastolic (mm Hg) 82 07/19/2016 [facility] Systolic (mm Hg) 134 06/07/2016 [facility] Height 67 06/07/2016 [facility] Weight 165 06/07/2016 [facility] Heart Rate 66 06/07/2016 [facility] Temperature Oral (F) 98.2 F 06/07/2016 [facility] Diastolic (mm Hg) 84 06/07/2016 [facility] Systolic (mm Hg) 130 02/20/2016 [facility] Height 67 02/20/2016 [facility] Weight 163 02/20/2016 [facility] Heart Rate 80 02/20/2016 [facility] Temperature Oral (F) 97.9 F 02/20/2016 [facility] Diastolic (mm Hg) 84 02/20/2016 [facility] Encounters Location Location Encounter Encounter Reason Attending ADM DC Status Source Details Type Number For Provider Date Date Visit [place] establish [id number] 02/19 02/19 [place] [id number] /2016 [facility], KADI [id number] Care [id number] [place] establish [id number] 02/19 02/19 [place] [id number] /2016 [facility] [id number] Care [id number] [place] establish [id number] 02/19 02/19 [place] [id number] [facility] [id number] Care [id number] [place] establish [id number] 02/19 02/19 [place] [id number] [facility] [id number] Care [id number] [place] referral [id number] 03/09 03/09 [place] Primary to out of [id number] /2016 [facility] network [phone] Care [id number] [place] referral [id number] 03/09 03/09 [place] Primary to out of [id number] [facility] network [id number] Care [id number] [place] referral [id number] 03/09 03/09 [place] Primary to out of [id number] [facility] network [phone] Care [id number] [place] Referral/A [id number] 04/16 04/16 [place] Primary ppeal [id number] [facility] [id number] Care [id number] [place] Referral/A [id number] 04/16 04/16 [place] Primary ppeal [id number] /2016 [facility] Care, KADI [id number] Care [id number] [place] pt update [id number] 04/19 04/19 [place] Primary [id number] /2016 [facility] [phone] Care [id number] Procedures No Data Provided for This Section Assessment and Plan No Data Provided for This Section Plan of Care No Data Provided for This Section Social History Social History Date Source Social History ElementQualifiersDate Reported 02/20/2016 [facility] Tobacco Use: . Are you a: never smoker Feb 20, 2016 Do you drink alcohol? . Status: No Feb 20, 2016 Family History No Data Provided for This Section Advance Directives No Data Provided for This Section Functional Status No Data Provided for This Section
--- OUTSIDE RECORDS SUMMARY | 2018-08-22 19:48 | XMS REPORT | Clinical Summary ---
:1955 Author Organization [facility] Address [address] [place] [address] Care Team Providers Name Role Phone Carol [...] Encounters Date Type Specialty Care Team Description 07/06/2018 Telephone UrologAnnalise Curiel MD 06/08/2018 Transcribe Orders UrologAnnalise Curiel Exposure of vaginal mesh through vaginal wall, subsequent encounter (Primary Dx); MD Gaby Fitting and adjustment of urinary device 03/27/2018 Telephone UrologAnnalise Curiel MD 02/21/2018 Telephone UrologAnnalise Curiel MD 01/20/2018 Telephone UrologAnnalise Curiel History of UTI MD Gaby (Primary Dx) 01/17/2018 Telephone UrologAnnalise Curiel MD 01/16/2018 Telephone Urology Annalise Gibson MD 01/10/2018 Telephone UrologAnnalise Curiel History of UTI MD Gaby (Primary Dx) 12/28/2017 Telephone Urology Patt Alicia MA 12/22/2017 Office Visit Urogynecology Lauren Mcgraw Recurrent UTI Hernandez Vaughan (Primary Dx) 12/14/2017 Telephone Annalise Hamlin Urinary heidi Griffin MD infection without hematuria, site unspecified (Primary Dx) 12/13/2017 Telephone Annalise Hamlin MD 12/09/2017 Telephone Urology Patt Alicia MA 12/08/2017 Telephone Annalise Hamlin MD 12/06/2017 Clinical Support Annalise Hamlin MD infection without hematuria, site unspecified (Primary Dx) 12/06/2017 Orders Only Annalise Hamlin MD 12/05/2017 Orders Only Annalise Hamlin Urinary tract MD Gaby infection without hematuria, site unspecified (Primary Dx) 12/05/2017 Telephone Urology Annalise Gibson MD 11/29/2017 Emergency Emergency Medicine English, Allergic contact MD Andre dermatitis due to adhesives (Primary Dx) 11/29/2017 Telephone Urology Annalise Gibson MD 11/22/2017 Telephone Urology Annalise Gibson MD 11/17/2017 Telephone Urology Annalise Gibson MD 11/17/2017 Telephone Urology Renny, Urinary tract Pam, HAND TAPPER infection without hematuria, site unspecified (Primary Dx) 11/16/2017 Hospital Encounter Vascular Access Tamika Gibson UTI (urinary tract MD Catracho infection) 11/16/2017 Lab Lab Annalise Gibson MD 11/16/2017 Hospital Encounter Radiology Annalise Gibson Frequent UTI MD Gaby 11/16/2017 Lab Lab Annalise Gibson History of urinary MD Gaby tract infection (Primary Dx) 11/16/2017 Lab Lab Annalise Gibson History of UTI; MD Gaby Frequent UTI 11/16/2017 Hospital Encounter Vascular Access Tamika Gibson MD 11/16/2017 Telephone Urology Annalise Gibson MD 11/14/2017 Telephone Urology Annalise Gibson History of UTI MD Gaby (Primary Dx) 11/10/2017 Office Visit Urology Annalise Gibson Frequent UTI (Primary Dx); MD Gaby Chronic bladder pain 09/14/2017 Telephone Obstetrics and Lauren Mcgraw Gynecology Hernandez Vaughan MD 09/09/2017 Telephone Urogynecology Lauren Mcgraw MD 08/22/2017 Telephone Urogynecology Lauren Mcgraw MD after 08/21/2017 Family History Medical History Relation Name Comments [...] Taken Blood Pressure 132/79 12/22/2017 8:18 AM SURGICAL SERVICES MANAGER Pulse 65 12/22/2017 8:18 AM SURGICAL SERVICES MANAGER Temperature 37.1 C (98.8 F) 12/22/2017 8:18 AM SURGICAL SERVICES MANAGER Respiratory Rate 17 11/29/2017 10:43 PM CDT Oxygen Saturation 98% 11/29/2017 10:43 PM CDT Inhaled Oxygen Concentration - - Weight 75.8 kg (167 lb) 12/22/2017 8:18 AM SURGICAL SERVICES MANAGER Height 170.2 cm (5' 7") 12/22/2017 8:18 AM SURGICAL SERVICES MANAGER Body Mass Index 26.16 12/22/2017 8:18 AM SURGICAL SERVICES MANAGER Plan of Treatment Health Maintenance Due Date Last Done Comments BREAST CANCER SCREENING 2006 COLONOSCOPY SCREENING 2006 SHINGLES VACCINES (#1) 2006 INFLUENZA VACCINE 09/14/2018 Implants Implanted Type 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 POC URINALYSIS Routine 12/22/2017 8:30 Recurrent UTI Results for this DIPSTICK AM SURGICAL SERVICES MANAGER procedure are in the results section. MEASURE [...] in the results section. US DUPLEX VENOUS STAT 11/29/2017 9:39 Results for this UPPER EXTREMITY RIGHT PM CDT procedure are in the results section. XR PICC CHEST Routine 11/16/2017 3:04 UTI (urinary tract Results for this PORTABLE PM CDT infection) procedure are in the [...] for this INR PM CDT Chronic bladder pain procedure are in the results section. CBC WITH PLATELET AND Routine 11/10/2017 3:14 Frequent UTI Results for this DIFFERENTIAL PM CDT Chronic bladder pain procedure are in the results section. MICROSCOPIC Routine 11/10/2017 3:04 [...] procedure are in the results section. after 08/21/2017 Results Urine culture (01/23/2018 3:18 PM SURGICAL SERVICES MANAGER)Only the most recent of4 resultswithin the time period is included. Urine culture SEE NOTE [facility] Comment: [place] CULTURE, URINE, ROUTINE MICRO NUMBER:[id number] TEST STATUS: FINAL SPECIMEN SOURCE: URINE SPECIMEN QUALITY:ADEQUATE RESULT:Multiple organisms present, each less than 10,000 CFU/mL. These organisms, commonly found on external and internal genitalia, are considered to be colonizers. No further testing performed. Specimen Urine Resulting Agency Comment Performing Organization Information: Site ID: [id number] Name: [facility] Address: [address] [place] [id number] Director: Karolina Irvin Performing Organization Address City/State/Zipcode Phone Number [facility] [address] [address] POC urinalysis dipstick (12/22/2017 8:30 AM SURGICAL SERVICES MANAGER)Only the most recent of2 resultswithin the time period is included. Color urine, POC Yellow Clarity urine, POC Clear Glucose urine, POC Negative Negative Bilirubin urine, POC Negative Negative Ketones urine, POC Negative Negative Specific gravity 1.020 1.005 - 1.030 urine, POC Blood urine, POC Small (A) Negative pH urine, POC 5.0 5.0, 5.5, 6.0, 6.5, 7.0, 7.5, 8.0, 8.5 Protein urine, POC Negative Negative Urobilinogen urine, <2.0 <2.0 POC Nitrite urine, POC Positive (A) Negative Leukocyte esterase Trace (A) Negative urine, POC Specimen Urine Measure post void residual (12/22/2017) Total volume, urine 30 ml Specimen PV Duplex Venous Upper Extremity (11/29/2017 9:39 PM CDT) Specimen Narrative Performed At [facility] Vascular Ultrasound Laboratory Upper Extremity Venous Report [address] [place] [address] Pat.Name:Alicia TURK.ID:[id number] .Date: 11/29/2017Refer.MD:ANDRE ENGLISH MD Exam Time: 9:25:00 PMStudy Type:UE Venous Height:67inWeight: 165lb BSA: 1.86 m2 DOBAge:1955,62Y Sex: FEMALESonogrphr: Cassidy Collins RVT Pat. Stat.:Inpatient Room:ED-EDT TapeVol: JAVY, CPT - 4: 66262 Echo Event ID:[id number] Order ID:[id number] Reason for Study:RUE swelling and pain. Procedures:Colorflow, [...] 11/29/2017 11:25 PM Ronald Johnson MD, RPVI Procedure Note Interface, Radiology Results In - 11/29/2017 11:26 PM CDT [facility] Upper Extremity Venous Report [address] [place] [address] Pat.Name: BRISSA TURK Pat.ID: [id number] .Date: 11/29/2017 Refer.MD: ANDRE ENGLISH MD Exam Time: 9:25:00 PM Study Type:UE Venous Height: 67in Weight: 165lb BSA: 1.86 m2 Age: 9 1955,62Y Sex: FEMALE Sonogrphr: Cassidy Collins RVT Pat. Stat.:Inpatient Room: ED-EDT Tape Vol: JJ, CPT - 4: 90771 Echo Event ID:[id number] Order ID: [id number] Reason for Study:RUE swelling and pain. Procedures:Colorflow, [...] Ronald Johnson MD, RPVI Performing Organization Address [facility] Phone Number [facility] [address] [place] [address] XR Picc Chest Portable (11/16/2017 3:04 PM CDT) Specimen Narrative Performed At EXAMINATION:XR PICC CHEST PORTABLE [facility] INDICATION:N39.0 Urinary tract infectionsite not specified, Long-term antibiotics COMPARISON:None IMPRESSION: 1.Right upper extremity PICC terminates at the cavoatrial junction. 2.Otherwise, visualized lungs, cardiomediastinal silhouette and bones are unremarkable. [id number] Procedure Note Hm Interface, Radiology Results Incoming - 11/16/2017 4:16 PM CDT EXAMINATION: XR PICC CHEST PORTABLE INDICATION: N39.0 Urinary tract infection site not specified, Long-term antibiotics COMPARISON:None IMPRESSION: 1. Right upper extremity PICC terminates at the cavoatrial junction. 2. Otherwise, visualized lungs, cardiomediastinal silhouette and bones are unremarkable. [facility]-[id number] Performing Organization Address [facility] Cent[facility]ofl Phone Number [facility] [address] [place] [address] PICC INSERTION (11/16/2017 2:39 PM CDT) Narrative Performed At Clemente Villaseñor RN 11/16/20173:02 PM PICC insertion Date/Time: 11/16/2017 2:39 PM Performed by: EMRE PALMA Authorized by: TAMIKA GIBSON Consent: Consent obtained:Verbal Consent given by:Patient Risks discussed: arterial puncture, incorrect placement, nerve damage, bleeding, infection, superficial thrombus and deep vein thrombus [place] protocol: Procedure explained and questions answered to [...] LDA): Patient position:Flat Vessel Size (mm):6 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 [facility]-[id number] Procedure Note [facility], Radiology Results Incoming - 11/16/2017 3:06 PM [...] 3. 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 [facility]-[id number] Performing Organization Address City/State/Zipcode Phone Number CHRISTINE [address] [place] [address] Estimated GFR (11/16/2017 11:28 AM CDT) Pathologist [facility] Estimated GFR 75 mL/min/1.73 [facility] DEPARTMENT OF Comment: m2 PATHOLOGY AND CatergoryUnitsInterpretation GENOMIC MEDICINE G1 >=90 Normal or high G2 60-89Mildly decreased O2p92-67Ushuqp to moderately decreased Y5n34-35Egamfctnxp to severely decreased G4 15-29Severely decreased G5 <15Kidney failure The eGFR was calculated using the Chronic Kidney Disease Epidemiology Collaboration (CKD-EPI) equation. Interpretation is based on recommendations of the National Kidney Foundation-Kidney Disease Outcomes Quality Initiative (NKF-KDOQI) published in 2014. Specimen Plasma specimen Performing Organization Address City/[facility] Centercode Phone Number [facility] DEPARTMENT OF PATHOLOGY AND [address] [place] [address] [facility] MEDICINE Basic metabolic panel (11/16/2017 11:28 AM CDT) Pathologist [facility] Sodium 143 135 - 148 mEq/L [facility] DEPARTMENT OF PATHOLOGY AND GENOMIC MEDICINE Potassium 4.6 3.5 - 5.0 mEq/L [facility] DEPARTMENT OF PATHOLOGY AND GENOMIC MEDICINE Chloride 105 98 - 112 mEq/L [facility] DEPARTMENT OF PATHOLOGY AND GENOMIC MEDICINE CO2 28 24 - 31 mEq/L [facility] DEPARTMENT OF PATHOLOGY AND GENOMIC MEDICINE Anion gap 10@ANIO 7 - 15 mEq/L [facility] DEPARTMENT OF PATHOLOGY AND GENOMIC MEDICINE BUN 15 8 - 23 mg/dL [facility] DEPARTMENT OF PATHOLOGY AND GENOMIC MEDICINE Creatinine 0.84 0.50 - 0.90 mg/dL [facility] DEPARTMENT OF PATHOLOGY AND GENOMIC MEDICINE Glucose 99 65 - 99 mg/dL [facility] DEPARTMENT OF PATHOLOGY AND GENOMIC MEDICINE Calcium 9.4 8.8 - 10.2 mg/dL [facility] DEPARTMENT OF PATHOLOGY AND GENOMIC MEDICINE Specimen Plasma specimen Performing Organization Address City/[facility]/Zipcode Phone Number [facility] DEPARTMENT OF PATHOLOGY AND [address] [place] [phone] GENOMIC MEDICINE Prothrombin time with INR (11/10/2017 3:14 PM CDT) Pathologist [facility] INR 1.0 0.8 - 1.2 [facility] Comment: Reference interval is for non-anticoagulated patients. Suggested INR therapeutic range for Vitamin K antagonist therapy: Standard Dose (moderate intensity therapeutic range): 2.0 - 3.0 Higher intensity therapeutic range 2.5 - 3.5 Prothrombin time 10.9 9.1 - 12.0 sec [facility] Specimen Blood Narrative Performed At Performed at: - [facility] [address] [place], [id number] Capital Equipment Specialist: Shoaib Johnson MD, Phone:[phone] Performing Organization Address City/State/Zipcode Phone Number [facility] CBC with platelet and differential (11/10/2017 3:14 PM CDT) [facility] WBC 7.0 3.4 - 10.8 x10E3/uL [facility] [...] [facility] Specimen Blood Narrative Performed At Performed at:[address] [place], [place] [id number] Capital Equipment Specialist: Shoaib Johnson MD, Phone:[phone] Performing Organization Address [facility] Phone Number [facility] Microscopic Examination (11/10/2017 3:04 PM CDT) WBC, UA 0-5 0 - 5 /hpf [facility] RBC, UA 0-2 0 - 2 /hpf [facility] Epithelial cells (non renal) 0-10 0 - 10 /hpf [facility] Mucus, UA Present Not Estab. [facility] Bacteria, UA Few None seen/Few [facility] Specimen Narrative Performed At Performed at:[address] [place], [place] [id number] Capital Equipment Specialist: Shoaib Johnson MD, Phone:[phone] Performing Organization Address [facility] Phone Number [facility] Urinalysis, automated with microscopy (11/10/2017 3:04 PM CDT) Specific gravity, 1.021 1.005 - 1.030 [facility] urine pH, urine 6.0 5.0 - 7.5 [facility] [...] Nitrite, UA Positive (A) Negative [facility] Microscopic See below:Comment: [facility] examination Microscopic was indicated and was performed. Specimen Narrative Performed At Performed at:[address] [place], [place] [id number] Capital Equipment Specialist: Shoaib Johnson MD, Phone:[phone] Performing Organization Address [facility] Phone Number [facility] after 08/21/2017 Insurance Payer Benefit Plan / Subscriber ID Effective Dates Phone Address Type Group [employer] xxxxxxxxxxx 2016-Presen O O MCR ADV t Advance Directives Patient has advance care planning documents on file. For more information, please contact:[place] [address]
--- OUTSIDE RECORDS SUMMARY | 2018-08-22 19:49 | XMS REPORT ---
[...] Date Status Dosage System Date Flonase NDC 22382-62 50 MCG/ACT Active 1 spray in 53-01 Nasally Once a each day nostril Premarin NDC 98605-79 0.625 MG/GM Active not defined 72-21 Vaginal Flagyl NDC 80717-31 500 MG Orally Active 1 tablet 21-31 twice a day (bid) Doxycycline NDC 90520-05 100 MG Orally Active 1 capsule Hyclate 42-05 every 12 hrs Vital Signs Date/Time: July 19, 2016 Blood Pressure Systolic 126 mm Hg Height 67 in Weight 164 lbs BMI 25.68 Index Cardiac Monitoring Heart Rate 59 /min Temperature 97.7 F Blood Pressure Diastolic 82 mm Hg Results No Known Results Summary Purpose eClinicalWorks Submission
--- OUTSIDE RECORDS SUMMARY | 2018-08-22 19:49 | XMS REPORT ---
[...] depression F32.89 Active Problem Anxiety F41.9 Active Medications No Known Medications Results No Known Results Summary Purpose eClinicalWorks Submission
--- OUTSIDE RECORDS SUMMARY | 2018-08-22 19:49 | XMS REPORT ---
[...] Start Date End Date Status Dosage Flonase [facility] [address]30-958 50 MCG/ACT Active 1 spray in 3-01 [...]
--- OUTSIDE RECORDS SUMMARY | 2018-08-22 19:49 | XMS REPORT ---
[...] Start End Date Status Dosage Date Amoxicillin [facility] 44276696215 500 MG Orally Jan 25, Feb 04, Active 1 capsule take three times 2016 2016 a day Results No Known Results Summary Purpose eClinicalWorks Submission
--- OUTSIDE RECORDS SUMMARY | 2018-08-22 19:50 | XMS REPORT ---
[...] Start End Date Status Dosage Date Flonase [facility] 51812621717 50 MCG/ACT Active 1 spray in Nasally Once a each day nostril Premarin [facility] 88395185871 0.625 MG/GM Active not defined Vaginal Vital Signs Date/Time: Jan 20, 2017 Blood Pressure Systolic 110 mm Hg Height 67 in Weight 153 lbs BMI 23.96 Index Cardiac Monitoring Heart Rate 67 /min Temperature 97.7 F Blood Pressure Diastolic 78 mm Hg Results No Known Results Summary Purpose eClinicalWorks Submission
--- OUTSIDE RECORDS SUMMARY | 2018-08-22 19:50 | XMS REPORT ---
:1955 [facility] Team Providers Name Role Phone Carol [...] End Status Dosage System Date Date Augmentin [facility] 18816935307 875-125 MG June 30, July 10, Active 1 tablet Orally every 12 2017 2018 hrs Symbicort ND 08487034394 80-4.5 MCG/ACT Mar 04, Active 2 puffs Inhalation Twice 2018 a day Lexapro ND 98715533410 10 MG Orally Feb 24, Active 1 tablet Once a day 2018 Premarin ND 43811152009 0.625 MG/GM Active not defined Vaginal Acyclovir ND 79691868487 5 % Externally Mar 17, Active 1 application Six times a day 2018 to affected area Prozac [facility] 94780077700 20 MG Orally Active 1 capsule in Once a day the morning Flonase ND 51574778086 50 MCG/ACT Active 1 spray in Nasally Once a each nostril day Vital Signs Date/Time: June 30, 2017 Blood Pressure Systolic 136 mm Hg Height 67 in Weight 156 lbs BMI 24.43 Index Cardiac Monitoring Heart Rate 62 /min Temperature 97.8 F Blood Pressure Diastolic 78 mm Hg Results No Known Results Summary Purpose eClinicalWorks Submission
--- OUTSIDE RECORDS SUMMARY | 2018-08-22 19:50 | XMS REPORT ---
[...] Start End Date Status Dosage Date Flonase [facility] 88436579031 50 MCG/ACT Active 1 spray in Nasally Once a each day nostril Premarin ND 75783780509 0.625 MG/GM Active not defined Vaginal Prozac [facility] 29034390501 20 MG Orally Active 1 capsule Once a day in the morning Vital Signs Date/Time: July 14, 2017 Blood Pressure Systolic 112 mm Hg Height 67 in Weight 161 lbs BMI 25.21 Index Cardiac Monitoring Heart Rate 71 /min Temperature 98 F Blood Pressure Diastolic 68 mm Hg Results No Known Results Summary Purpose eClinicalWorks Submission
--- OUTSIDE RECORDS SUMMARY | 2018-08-22 19:50 | XMS REPORT ---
[...] Start End Date Status Dosage Date Flonase [facility] 44704787736 50 MCG/ACT Active 1 spray in Nasally Once a each day nostril Premarin [facility] 79552200335 0.625 MG/GM Active not defined Vaginal Lexapro ND 38770838563 10 MG Orally Feb 24, Active 1 tablet Once a day 2017 Vital Signs Date/Time: Feb 24, 2017 Blood Pressure Systolic 106 mm Hg Height 67 in Weight 156 lbs BMI 24.43 Index Cardiac Monitoring Heart Rate 67 /min Temperature 98.1 F Blood Pressure Diastolic 62 mm Hg Results No Known Results Summary Purpose eClinicalWorks Submission
--- OUTSIDE RECORDS SUMMARY | 2018-08-22 19:50 | XMS REPORT ---
[...] End Status Dosage System Date Date Flonase [facility] 52056300886 50 MCG/ACT Active 1 spray in Nasally Once a each day nostril Lexapro ND 30038951113 10 MG Orally Feb 24, Active 1 tablet Once a day 2018 Tessalon ND 45509639113 100 MG Orally Mar 04, Mar 14, Active 1 capsule Perles Three times a 2017 2018 as needed day Symbicort ND 57906372766 80-4.5 MCG/ACT Mar 04, Apr 03, Active 2 puffs Inhalation Twice 2017 2017 a day Premarin ND 95258390264 0.625 MG/GM Active not Vaginal defined Zithromax ND 38508095745 250 MG Orally Mar 04, Mar 09, [...]
--- OUTSIDE RECORDS SUMMARY | 2018-08-22 19:50 | XMS REPORT ---
[...] End Status Dosage System Date Date Acyclovir [facility] 56938682305 5 % Externally Mar 17, Active 1 application Six times a day 2018 to affected area Lexapro ND 97056797361 10 MG Orally Feb 24, Active 1 tablet Once a day 2018 Premarin ND 43480577994 0.625 MG/GM Active not defined Vaginal Flonase ND 11540827253 50 MCG/ACT Active 1 spray in Nasally Once a each nostril day Vital Signs Date/Time: Apr 07, 2017 Blood Pressure Systolic 110 mm Hg Height 67 in Weight 156 lbs BMI 24.43 Index Cardiac Monitoring Heart Rate 67 /min Temperature 97.7 F Blood Pressure Diastolic 72 mm Hg Results No Known Results Summary Purpose eClinicalWorks Submission
--- OUTSIDE RECORDS SUMMARY | 2018-08-22 19:50 | XMS REPORT ---
[...] Start Date End Date Status Dosage Symbicort [facility] 50183305846 80-4.5 MCG/ACT Mar 04, Active 2 puffs Inhalation Twice 2018 a day Results No Known Results Summary Purpose eClinicalWorks Submission
--- OUTSIDE RECORDS SUMMARY | 2018-08-22 19:50 | XMS REPORT ---
[...] Start End Date Status Dosage Date Prozac [facility] 74693561976 20 MG Orally Active 1 capsule Once a day in the morning Flonase ND 12662696442 50 MCG/ACT Active 1 spray in Nasally Once a each day nostril Premarin ND 69560950394 0.625 MG/GM Active not defined Vaginal Levaquin ND 63571019256 500 mg Orally Dec 21Dec 31, Active [...]
--- OUTSIDE RECORDS SUMMARY | 2018-08-22 19:51 | XMS REPORT ---
[...] Status Dosage System Date Date Valacyclovir HCl [facility] 89273444974 500 MG Orally Oct 13Oct Active 1 tablet three times a 2017 Results No Known Results Summary Purpose eClinicalWorks Submission
--- OUTSIDE RECORDS SUMMARY | 2018-08-22 19:51 | XMS REPORT ---
:1955 Author Organization eClinicalWorks Care Team Providers Name Role Phone Carol Ann Katz Provider Role Unavailable Encounters Encounter [facility] Mar [facility], [facility] April 16, 2016 Problems Problem [...]
--- OUTSIDE RECORDS SUMMARY | 2018-08-22 19:51 | XMS REPORT ---
:1955 Author Organization eClinicalWorks Care Team Providers Name Role Phone Carol Ann Katz Provider Role Unavailable Encounters Encounter [facility] Mar 09, 2016 Problems Problem [...]
--- OUTSIDE RECORDS SUMMARY | 2018-08-22 19:51 | XMS REPORT ---
:1955 Author Organization eClinicalWorks Care Team Providers Name Role Phone Carol Ann Katz Provider Role Unavailable Allergies, Adverse Reactions, Alerts Substance Reaction Event Type N.K.D.A. Info Not Available Non Drug Allergy Encounters [facility] Problems Problem Type [...]
--- OUTSIDE RECORDS SUMMARY | 2018-08-22 19:51 | XMS REPORT ---
:1955 Author Organization eClinicalWorks Care Team Providers Name Role Phone Carol Ann Katz Provider Role Unavailable Encounters Encounter Location Date pt update [facility] April 19, 2016 [facility] Feb 20, 2016 [facility] Mar 09, 2016 [facility] April 16, 2016 Problems Problem [...]
--- OUTSIDE RECORDS SUMMARY | 2018-08-22 19:51 | XMS REPORT ---
[...] End Status Dosage System Date Date Doxycycline [facility] 96266332610 100 MG Orally Active 1 capsule Hyclate every 12 hrs Premarin ND 65806937241 0.625 MG/GM Active not Vaginal defined Flagyl ND 17134876716 500 MG Orally Active 1 tablet twice a day (bid) Flonase ND 72038725281 50 MCG/ACT Active 1 spray in Nasally Once a each day nostril Cipro ND 47409984262 500 MG Orally August 30August Active 1 tablet Twice a day 2016 Vital Signs Date/Time: August 30, 2016 Blood Pressure Systolic 138 mm Hg Height 67 in Weight 163 lbs BMI 25.53 Index Cardiac Monitoring Heart Rate 51 /min Temperature 98 F Blood Pressure Diastolic 82 mm Hg Results No Known Results Summary Purpose eClinicalWorks Submission
--- OUTSIDE RECORDS SUMMARY | 2018-08-22 19:51 | XMS REPORT ---
[...] End Date Status Dosage Date Prozac ND 75286545574 20 MG Orally Active 1 capsule Once a day in the morning Premarin NDC 71187980575 0.625 MG/GM Active not defined Vaginal Flonase ND 47482188430 50 MCG/ACT Active 1 spray in Nasally [...]
--- OUTSIDE RECORDS SUMMARY | 2018-08-22 19:51 | XMS REPORT ---
[...] Status Dosage Flonase [facility] 45660-481 50 MCG/ACT Active 1 spray in 3-01 Nasally Once a each day nostril Results No Known Results Summary Purpose eClinicalWorks Submission
--- OUTSIDE RECORDS SUMMARY | 2018-08-22 19:51 | XMS REPORT ---
[...] End Status Dosage System Date Date Lexapro [facility] 46317122809 10 MG Orally Feb 24, Active 1 tablet Once a day 2017 Symbicort ND 66911702760 80-4.5 MCG/ACT Mar 04Mar Active 2 puffs Inhalation 2017, Twice a day 2017 Valacyclovir ND 58642828952 1 GM Orally Mar 17Mar Active 1 tablet HCl every 24 hrs 2017 Acyclovir ND 79751594101 5 % Externally Mar 17, Active 1 application Six times a day 2017 to affected area Flonase ND 30794555794 50 MCG/ACT Active 1 spray in Nasally Once a each nostril day Premarin ND 99115473924 0.625 MG/GM Active not defined Vaginal Lidoderm ND 32762630110 5 % Externally Mar 17Mar Active 1 [...]
--- OUTSIDE RECORDS SUMMARY | 2018-08-22 19:51 | XMS REPORT ---
[...] Start End Date Status Dosage Date Prozac [facility] 57316034671 20 MG Orally Active 1 capsule Once a day in the morning Flonase ND 15855672858 50 MCG/ACT Active 1 spray in Nasally Once a each day nostril Premarin ND 43164996112 0.625 MG/GM Active not defined Vaginal Levaquin ND 07285860006 500 mg Orally Dec 21Dec 31, Active [...]
--- OUTSIDE RECORDS SUMMARY | 2018-08-22 19:52 | XMS REPORT ---
:1955 [facility] Address [address] [place] [address] [address] [place] [address] Care Team Providers Name Role Phone Unavailable Unavailable Unavailable Problems This patient has no known problems. Allergies, Adverse Reactions, Alerts This patient has no known allergies or adverse reactions. Medications This patient has no known medications. Results Test Description Test Time Test Comments Text Results Atomic Results Result Comments RAD, CHEST, 2 2017-06-23 08:01:00 Reason for FINAL REPORT PATIENT ID: VIEWS Exam:->R07.2 [id number] Chest 2 views 06/23/2017 8:01 AM CLINICAL HISTORY: R07.2 COMPARISON: 08/11/2015 FINDINGS: The lungs are clear. Cardiomediastinal contours are within normal limits. The central pulmonary vasculature is not engorged. The visualized skeleton is intact. IMPRESSION: No acute radiographic abnormalities. Signed: Radhames Diaz Verified Date/Time: 06/23/2017 08:01:18 Reading Location: [facility] Radiology Reading Room
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
[2018-08-22 22:03] VITALS: BP 145/68; TEMP 98.5; O2SAT 97
== END 2018-08-22 21:17 | disposition home or self-care (01) ==
LOC: ER 19:44
PROC: 2W3DX1Z Immobilization of Left Lower Arm using Splint (ICD-10-PCS; principal; 2018-08-22)
DX: S52.612A Displaced fracture of left ulna styloid process, initial encounter for closed fracture (principal); W55.22XA Struck by cow, initial encounter; Y93.89 Activity, other specified; Y92.9 Unspecified place or not applicable; Z88.1 Allergy status to other antibiotic agents; Z88.2 Allergy status to sulfonamides; Z88.5 Allergy status to narcotic agent; Z88.6 Allergy status to analgesic agent; Z88.8 Allergy status to other drugs, medicaments and biological substances
CPT/HCPCS: 99283

== ENCOUNTER 2023-10-12 16:49 | Emergency (ER) | payer MEDICAID, OTHER ==
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
== END 2023-10-12 18:59 | disposition home or self-care (01) ==
LOC: ER 16:49
DX: S06.0X0A Concussion without loss of consciousness, initial encounter (principal); V49.40XA Driver injured in collision with unspecified motor vehicles in traffic accident, initial encounter; M54.2 Cervicalgia; M54.50 Low back pain, unspecified
CPT/HCPCS: 70450; 71250; 72125

== ENCOUNTER 2024-01-30 14:22 | Emergency (ER) | payer MEDICAID ==
[2024-01-30] MEDS ORDERED: FAMOTIDINE 20 MG/2 ML VIAL IV ONE (15:32)
[2024-01-30] MEDS ORDERED: NA CHLORIDE 0.9% 1,000 ML ONE ×2 (15:32→17:05)
[2024-01-30] MEDS ORDERED: ONDANSETRON 4 MG/2 ML VIAL ONE (15:32)
[2024-01-30] MEDS ORDERED: FENTANYL CITR 100 MCG/2 ML ONE (15:32)
[2024-01-30 15:57] LABS: Absolute Lymphocytes (CBC) 0.6 K/uL (0.7-4.9); Absolute Monocytes 0.5 K/uL (0.1-1.3); Absolute Neutrophil 4.7 K/uL (1.8-8.0); Basophils % 0.5 % (0-1.3); Eosinophils % 0.3 % (0-4.4); Hemoglobin 13.9 g/dL (12.0-15.0); Lymphocytes % 10.5 % (15.3-44.8); MCH 31.8 pg (27.0-35.0); MCHC 33.8 g/dL (32.0-36.0); MPV 8.2 fL (7.6-11.3); Monocytes % 9.1 % (3.3-12.3); Neutrophils % 79.6 % (41.7-73.7); Nucleated Red Blood Cells % 0.3 % (0-0); PT Prothrombin Time 12.8 SECONDS (9.4-12.5); Platelets 222 thou/uL (152-406); Protime INR 1.15; RBC Red Blood Cell Count 4.36 M/uL (3.86-4.86); Red Cell Distribution Width 12.8 % (12.1-15.2)
[2024-01-30 16:11] LABS: ALT/SGPT 43 U/L (13-56); AST/SGOT 25 U/L (15-37); Albumin 3.6 g/dL (3.4-5.0); Albumin/Globulin Ratio 1.1 (1.1-1.8); Alkaline Phosphatase 85 U/L (45-117); Anion Gap 10.1 mEq/L (5.0-15.0); BUN Blood Urea Nitrogen 13 mg/dL (7-18); Bicarbonate 26 mEq/L (21-32); Bilirubin Total 0.3 mg/dL (0.2-1.0); Globulin 3.3 g/dL (2.3-3.5); Glomerular Filtration Rate 71 ml/min (=/>90); Glucose Level 124 mg/dL (74-106); Lipase 18 U/L (13-75); Magnesium 2.3 mg/dL (1.6-2.4); Potassium 4.1 mEq/L (3.5-5.1); Protein, Total 6.9 g/dL (6.4-8.2); Sodium Level 138 mEq/L (136-145)
[2024-01-30 16:13] LABS: Bilirubin Direct < 0.2 mg/dL (0-0.2); Bilirubin Indirect, Calculated 0.1 mg/dL (0.2-0.8); Troponin High Sensitivity < 3.0 pg/mL (<58.9)
[2024-01-30 16:25] LABS: SARS-CoV-2 Antigen CONTROL BLUE LINE VIS/BG OK; SARS-CoV-2 Antigen Rapid Res Negative (Negative)
--- NOTE | 2024-01-30 16:48 | RAD REPORT ---
EXAMINATION: ONE VIEW CHEST XR CLINICAL INDICATION: Female, 68 years old.,COUGH TECHNIQUE: Frontal chest projection is submitted. Examination is limited by patient positioning and t echnique. COMPARISON: 03/10/2014 FINDINGS: The lungs are well inflated and clear. No pneumothorax or sizable effusion. The heart is upper limit of normal in size. Mediastinal contours are unremarkable. IMPRESSION: No acute intrathoracic abnormalities.
[2024-01-30] MEDS ORDERED: METOCLOPRAMIDE 10 MG/2mL INJ ONE (17:05)
[2024-01-30 17:52] LABS: Specific Gravity 1.026 (1.005-1.030); Sqamous Epithelial None Seen /HPF (None Seen); Urine Bacteria None Seen /HPF (<20); Urine Bilirubin NEGATIVE (Negative); Urine Blood 1+ (Negative); Urine Clarity Clear (Clear); Urine Color Light-Yellow (Yellow); Urine Culture Reflex Order NOT NEEDED; Urine Glucose NEGATIVE (Negative); Urine Ketones TRACE (Negative); Urine Microscopic Reflex YN ORDER UMIC; Urine Mucus Slight /HPF (None Seen); Urine Nitrite 2+ (Negative); Urine Protein NEGATIVE (Negative); Urine RBC <5 /HPF (None Seen); Urine Urobilinogen Normal (Normal); Urine WBC <5 /HPF (<5); Urine pH 5.5 (5.0-7.0)
--- NOTE | 2024-01-30 18:01 | RAD REPORT ---
EXAMINATION: CT Abdomen Pelvis W Contrast CLINICAL INDICATION: Female, 68 years old. ABD PAIN TECHNIQUE: CT abdomen and pelvis was performed, after the administration of 97 mL Isovue-300, as per department protocol. Axial, sagittal and coronal reconstructions were obtained. One or more of the following dose reduction techniques were used: Automated exposure control, adjustment of the mA and k V according to patient size, and iterative reconstruction. Unless otherwise specified, incidental findings do not require dedicated imaging follow-up. COMPARISON: No prior exam. FINDINGS: LOWER CHEST: The visualized lung bases show bibasilar atelectatic changes. LIVER: Normal in size and contour. No focal lesion. BILIARY SYSTEM: Suboptimal distention of the gallbladder which limits evaluation, versus cholecystect lb. Mildly prominent caliber of the common bile duct up to 7 mm, which may relate to reservoir effect. SPLEEN: Normal size. No focal lesion. PANCREAS: No mass, ductal dilation, or bert-pancreatic fluid. ADRENALS: Normal; no mass. KIDNEYS: Normal size and contour. No hydronephrosis. URINARY BLADDER: Unremarkable. GASTROINTESTINAL TRACT: Short segment air-fluid levels within nondistended small bowel loops, could r elate to mild enteritis. No evidence of free air, significant intra-abdominal free fluid, bowel obstruction or abscess. APPENDIX: Normal appendix. LYMPH NODES: No lymphadenopathy. MUSCULOSKELETAL: No acute or suspicious osseous abnormality. Subchondral sclerotic changes at the sym physis pubis, may be of degenerative nature. ADDITIONAL FINDINGS: None. IMPRESSION: Nonspecific short segment air-fluid levels within nondistended small bowel loops, could relate to mil d enteritis. No other acute or concerning abnormalities seen in the abdomen or pelvis.
--- NOTE | 2024-01-30 18:09 | RAD REPORT ---
EXAM: CT Head Brain Wo Cont HISTORY: HEADACHE COMPARISON: 10/12/2023 TECHNIQUE: Multiple contiguous axial images were obtained for a CT of the brain without contrast. Sag ittal and coronal reformats were performed. One or more of the following dose reduction techniques were used: Automated exposure control, adjus tment of the mA and kV according to patient size, and iterative reconstruction. Unless otherwise specified, incidental findings do not require dedicated imaging follow-up. FINDINGS: No evidence of hydrocephalus, intracranial hemorrhage, or extra-axial fluid collection. The brain is normal in morphology. The calvarium is intact. The visualized paranasal sinuses and mastoid air cells are essentially clear . IMPRESSION: No evidence of acute intracranial abnormality.
[2024-01-30] MEDS ORDERED: CEFTRIAXONE 1000 MG/VIAL ONE (18:42)
--- NOTE | 2024-01-30 19:18 | ER ---
Nurse's Notes [facility] Name: Yaa Paige Age: 68 yrs Sex: Female : 1955 Arrival Date: 01/30/2024 Time: 14:22 Bed 6 Private MD: Diagnosis: Diarrhea, unspecified;Nausea with vomiting, unspecified;Cough;UTI/ Urinary tract infection, site not specified Presentation: 01/29 14:50 Chief complaint: Patient states: COUGH, FEVER, CHILLS, BODY ACHES, DIARRHEA AND cm10 VOMITING ONSET 2 DAYS AGO. Coronavirus screen: Client denies travel out of the [place] in the last 14 days. Ebola Screen: Patient denies travel to an Ebola-affected area in the 21 days before illness onset. No symptoms or risks identified at this time. Initial Sepsis Screen: Does the patient meet any 2 criteria? HR > 90 bpm. Does the patient have a suspected source of infection? No. Patient's initial sepsis screen is negative. Risk Assessment: Do you want to hurt yourself or someone else? Patient reports no desire to harm self or others. Onset of symptoms was January 30, 2024. 14:50 Method Of Arrival: Wheelchair cm10 14:50 Acuity: ROD 3 cm10 Triage Assessment: 14:52 General: Appears in no apparent distress. uncomfortable, Behavior is calm, cooperative. cm10 Neuro: No deficits noted. Level of Consciousness is awake, alert, obeys commands, Oriented to person, place, time, situation, Appropriate for age. Respiratory: No deficits noted. Airway is patent Respiratory effort is even, unlabored, Respiratory pattern is regular, symmetrical. Historical: - Allergies: 14:51 CAMPHOR; cm10 14:51 Amoxicillin; cm10 - PMHx: 14:51 a fib; COPD; Hypertensive disorder; cm10 - PSHx: 14:51 abdominal mesh surgeries; Cholecystectomy; cm10 - Immunization history:: Adult Immunizations up to date. - Infectious Disease History:: Denies. - Social history:: Smoking status: Patient denies any tobacco usage or history of. Screenin:40 [facility] ED Fall Risk Assessment (Adult) History of falling in the last 3 months, aa5 including since admission No falls in past 3 months (0 pts) Confusion or Disorientation No (0 pts) Intoxicated or Sedated No (0 pts) Impaired Gait No (0 pts) Mobility Assist Device Used No (0 pt) Altered Elimination No (0 pt) Score/Fall Risk Level 0 - 2 = Low Risk Oriented to surroundings, Maintained a safe environment, Educated pt \T\ family on fall prevention, incl call for assistance when getting out of bed. Abuse screen: Denies threats or abuse. Nutritional screening: No deficits noted. Tuberculosis screening: No symptoms or risk factors identified. Assessment: 15:40 General: Appears uncomfortable, Behavior is calm, cooperative. Pain: Complains of pain aa5 in whole body and head Pain currently is 10 out of 10 on a pain scale. Quality of pain is described as aching, throbbing, Pain began 2-3 days ago. Is continuous. Neuro: Level of Consciousness is awake, alert, obeys commands, Oriented to person, place, time, situation. Cardiovascular: Heart tones S1 S2 present Rhythm is regular. Respiratory: Airway is patent Respiratory effort is even, unlabored, Respiratory pattern is regular, symmetrical. GI: Abdomen is round non-distended, Bowel sounds present X 4 quads. Abd is soft and non tender X 4 quads. Reports diarrhea, nausea, vomiting. : Reports she straight caths at home as needed. EENT: No signs and/or symptoms were reported regarding the EENT system. Derm: Skin is pink, warm \T\ dry. Musculoskeletal: Range of motion: intact in all extremities. 15:50 Reassessment: Patient is alert, oriented x 3, equal unlabored respirations, skin aa5 warm/dry/pink. 15:50 Reassessment: Remaining 25mcg of Fentanyl wasted, witnessed by Clara Conn RN. Pt aa5 refused Fentanyl administration. . 17:00 Reassessment: Patient is alert, oriented x 3, equal unlabored respirations, skin aa5 warm/dry/pink. Pt to CT scan, continues to refuse pain medication, pt c/o headache and reports nausea has improved, provider notified. . 17:14 Reassessment: Patient is alert, oriented x 3, equal unlabored respirations, skin aa5 warm/dry/pink. Pt back from CT scan, warm blankets provided . 17:40 Reassessment: Patient is alert, oriented x 3, equal unlabored respirations, skin aa5 warm/dry/pink. 18:57 Reassessment: Pt reports nausea has improved, reports headache has improved slightly, aa5 given water for PO challenge. . 19:10 Reassessment: Patient is alert, oriented x 3, equal unlabored respirations, skin aa5 warm/dry/pink. Pt tolerated cup of water well. . 19:28 Reassessment: Patient and/or family updated on plan of care and expected duration. Pain br2 level reassessed. Patient is alert, oriented x 3, equal unlabored respirations, skin warm/dry/pink. Patient states feeling better. Patient states symptoms have improved. Pain:. Vital Signs: 14:50 BP 122 / 66; Pulse 107; Resp 19; Temp 99(O); Pulse Ox 99% on R/A; Weight 77.11 kg; cm10 Height 5 ft. 7 in. ; Pain 10/10; 17:15 BP 125 / 47; Pulse 99; Resp 18 S; Pulse Ox 98% on R/A; aa5 19:00 BP 120 / 74; Pulse 94; Resp 18 S; Temp 99(O); Pulse Ox 100% on R/A; aa5 14:50 Body Mass Index 26.63 (77.11 kg, 170.18 cm) cm10 14:50 Pain Scale: Adult cm10 ED Course: 14:23 Patient arrived in ED. im 14:30 Osorio Kim PA is PHCP. cp 14:30 Hola Otto MD is Attending Physician. cp 14:51 Triage completed. cm10 14:51 Arm band placed on right wrist. Patient placed in waiting room. cm10 15:08 Aster Jesus, RN is Primary Nurse. aa5 15:40 Patient has correct armband on for positive identification. Bed in low position. Call aa5 light in reach. Side rails up X2. Adult w/ patient. Client placed on continuous cardiac and pulse oximetry monitoring. NIBP monitoring applied. air sampling and monitoring on. Pulse ox on. NIBP on. 15:48 Inserted saline lock: 20 gauge in right wrist, using aseptic technique. Flushed with 10 aa5 mL NS. 16:04 XRAY Chest (1 view) In Process Unspecified. EDMS 17:09 CT Abd/Pelvis - IV Contrast Only In Process Unspecified. EDMS 17:09 CT Head Brain wo Cont In Process Unspecified. EDMS 17:40 Urine collected: straight cath specimen, Amount Returned: 750mL Urine sent to lab. aa5 19:03 Report given to GILBERT Neal and GILBERT Jean-Baptiste. aa5 19:10 Straight cath inserted, using sterile technique, 14 Fr. Returned 500mls of urine, pt aa5 requested to straight cath, she self caths at home as needed. . Patient tolerated well. 19:29 Patient did not have IV access during this emergency room visit. intact, bleeding br2 controlled, No redness/swelling at site. Pressure dressing applied. 19:29 No provider procedures requiring assistance completed. br2 Administered Medications: 15:50 Drug: NS 0.9% IV 1000 ml IV at 1000 ml once; to be given as a bolus over 60 minutes aa5 Route: IV; Rate: 1000 ml; Site: right wrist; 16:50 Follow up: IV Status: Completed infusion; IV Intake: 1000ml aa5 15:50 Drug: Famotidine IVP 20 mg IVP once; dilute with 10 mL 0.9% NaCl; give over 2 minutes aa5 Route: IVP; Site: right wrist; 16:00 Follow up: Response: No adverse reaction aa5 15:50 Drug: Ondansetron IVP 4 mg IVP once; over 2 minutes Route: IVP; Site: right wrist; aa5 16:00 Follow up: Response: No adverse reaction aa5 15:50 Not Given (Patient Refused): fentanyl (pf)25 mcg IVP once aa5 17:16 Drug: metoCLOPramide IVP 10 mg IVP once; over 1 to 2 minutes Route: IVP; Site: right aa5 wrist; 17:40 Follow up: Response: No adverse reaction aa5 17:16 Drug: NS 0.9% IV 1000 ml IV at 1000 ml once; to be given as a bolus over 60 minutes aa5 Route: IV; Rate: 1000 ml; Site: right wrist; 18:16 Follow up: IV Status: Completed infusion; IV Intake: 1000ml aa5 18:57 Drug: Rocephin IV 1 grams IV at calculated rate once; Given slow IV push per pharmacy aa5 instructions Route: IV; Rate: calculated rate; Site: right wrist; 19:00 Follow up: IV Status: Completed infusion aa5 19:28 Drug: Acetaminophen PO 1000 mg PO once Route: PO; br2 19:30 Follow up: Response: Medication administered at discharge. br2 Medication: 17:00 VIS not applicable for this client. aa5 Intake: 16:50 IV: 1000ml; Total: 1000ml. aa5 18:16 IV: 1000ml; Total: 2000ml. aa5 Outcome: 19:17 Discharge ordered by MD. cormier 19:29 Discharged to home br2 19:29 Condition: good 19:29 Discharge instructions given to patient, Instructed on discharge instructions, Demonstrated understanding of instructions, follow-up care, medications, Prescriptions given X 1, 19:31 Patient left the ED. br2 Signatures: Dispatcher [employer] EDMS Aster Jesus RN RN aa5 Osorio Kim PA PA cp Mendoza, Itzel im Martinez, Clarissa, RN RN cm10 Jerilyn Velazquez RN RN br2 Corrections: (The following items were deleted from the chart) 19:02 15:50 Ondansetron IVP 4 mg IVP in right antecubital aa5 aa5 19:02 17:16 NS 0.9% IV 1000 ml IV at 1000 ml in right antecubital aa5 aa5 19:02 17:16 metoCLOPramide IVP 10 mg IVP in right antecubital aa5 aa5 19:03 15:50 NS 0.9% IV 1000 ml IV at 1000 ml in right antecubital aa5 aa5 19:03 15:50 Famotidine IVP 20 mg IVP in right antecubital aa5 aa5 19:03 15:48 Inserted saline lock: 20 gauge in right antecubital area, using aseptic aa5 technique. Flushed with 10 mL NS aa5
--- NOTE | 2024-01-30 19:18 | EDPHYS ---
Physician Documentation [facility] Name: Yaa Paige Age: 68 yrs Sex: Female : 1955 Arrival Date: 01/30/2024 Time: 14:22 Bed 6 Private MD: ED Physician Hola Otto HPI: 01/29 15:00 This 68 yrs old Female presents to ER via Wheelchair with complaints of Fever, cp Nausea/Vomiting/Diarrhea. 15:00 The patient reports fever, not measured (subjective). Onset: The symptoms/episode cp began/occurred 2 day(s) ago. 15:00 Associated signs and symptoms: Pertinent positives: abdominal pain, cough, decreased cp appetite, diarrhea, nausea, vomiting, Pertinent negatives: altered mental status, chest pain, shortness of breath. Severity of symptoms: in the emergency department the symptoms are unchanged despite home interventions. Historical: - Allergies: 14:51 CAMPHOR; cm10 14:51 Amoxicillin; cm10 - PMHx: 14:51 a fib; COPD; Hypertensive disorder; cm10 - PSHx: 14:51 abdominal mesh surgeries; Cholecystectomy; cm10 - Immunization history:: Adult Immunizations up to date. - Infectious Disease History:: Denies. - Social history:: Smoking status: Patient denies any tobacco usage or history of. ROS: 15:05 Constitutional: Positive for fever, poor PO intake, cp 15:05 Eyes: Negative for injury, pain, redness, and discharge, cp 15:05 ENT: Negative for drainage from ear(s), ear pain, sore throat, difficulty swallowing, difficulty handling secretions, 15:05 Cardiovascular: Negative for chest pain, 15:05 Respiratory: Positive for cough, 15:05 Abdomen/GI: Positive for abdominal pain, nausea and vomiting, diarrhea, Negative for hematemesis, black/tarry stool, rectal bleeding, 15:05 Neuro: Positive for headache, weakness, Negative for altered mental status, 15:05 All other systems are negative, Exam: 15:10 Constitutional: The patient appears in no acute distress, alert, awake, cp non-diaphoretic, non-toxic, well developed, well nourished, uncomfortable, 15:10 Head/Face: Normocephalic, atraumatic. cp 15:10 Eyes: Periorbital structures: appear normal, Pupils: equal, round, and reactive to light and accomodation, Extraocular movements: intact throughout, Conjunctiva: normal, no exudate, no injection, Sclera: no appreciated abnormality, Lids and lashes: appear normal, bilaterally, 15:10 ENT: External ear(s): are unremarkable, Nose: is normal, Mouth: Lips: dry, Oral mucosa: dry, Posterior pharynx: Airway: no evidence of obstruction, patent, 15:10 Neck: ROM/movement: Meningeal signs: are not present, nuchal rigidity, is not appreciated, 15:10 Chest/axilla: Inspection: normal, 15:10 Cardiovascular: Rate: tachycardic, Rhythm: regular, Edema: is not appreciated, JVD: is not appreciated, 15:10 Respiratory: the patient does not display signs of respiratory distress, Respirations: normal, no use of accessory muscles, no retractions, labored breathing, is not present, Breath sounds: bronchial sounds, that are mild, are heard diffusely, 15:10 Abdomen/GI: Inspection: distension, is not seen, Bowel sounds: active, all quadrants, Palpation: soft, in all quadrants, moderate abdominal tenderness, in all quadrants, rebound tenderness, is not appreciated, voluntary guarding, is elicited in all quadrants, 15:10 Back: CVA tenderness, is absent, 15:10 Neuro: Orientation: to person, place \T\ time. Mentation: able to follow commands, Motor: moves all fours, no focal deficits, 15:40 ECG was reviewed by the Attending Physician. cp Vital Signs: 14:50 BP 122 / 66; Pulse 107; Resp 19; Temp 99(O); Pulse Ox 99% on R/A; Weight 77.11 kg; cm10 Height 5 ft. 7 in. ; Pain 10/10; 17:15 BP 125 / 47; Pulse 99; Resp 18 S; Pulse Ox 98% on R/A; aa5 19:00 BP 120 / 74; Pulse 94; Resp 18 S; Temp 99(O); Pulse Ox 100% on R/A; aa5 14:50 Body Mass Index 26.63 (77.11 kg, 170.18 cm) cm10 14:50 Pain Scale: Adult cm10 MDM: 16:00 Differential diagnosis: viral Infection, bacterial infection, bronchitis, pneumonia cp UTI, gastroenteritis, meningitis, colitis, sepsis. gastroenteritis. 19:17 Medical Screening Exam initiated 19:17 Data reviewed: vital signs, nurses notes, lab test result(s), EKG, radiologic studies, cp CT scan, plain films, and as a result, I will discharge patient. 19:17 I considered the following discharge prescriptions or medication management in the emergency department Medications were administered in the Emergency Department. See MAR. Independent interpretation of the following test(s) in the Emergency Department EKG: See my EKG interpretation above. Care significantly affected by the following chronic conditions: Hypertension, Chronic Obstructive Pulmonary Disease. Counseling: I had a detailed discussion with the patient and/or guardian regarding the historical points, exam findings, and any diagnostic results supporting the discharge/admit diagnosis, lab results, radiology results, to return to the emergency department if symptoms worsen or persist or if there are any questions or concerns that arise at home. Response to treatment: the patient's symptoms have markedly improved after treatment, and as a result, I will discharge patient. Special discussion: Based on the patient's Hx, exam, and Dx evaluation, there is no indication for emergent surgery or inpatient Tx. It is understood by the patient/guardian that if the Sx's persist or worsen they need to return immediately for re-evaluation. 12 14:57 Order name: Basic Metabolic Panel; Complete Time: 16:39 01/29 14:57 Order name: CBC with Diff; Complete Time: 16:39 01/29 14:57 Order name: LFT's; Complete Time: 16:39 01/29 14:57 Order name: Magnesium; Complete Time: 16:39 01/29 14:57 Order name: PT-INR; Complete Time: 16:39 01/29 14:57 Order name: Troponin HS; Complete Time: 16:39 16 14:57 Order name: Influenza Screen (a \T\ B); Complete Time: 16:39 01/29 14:57 Order name: SARS RAPID; Complete Time: 16:39 16 14:57 Order name: Urinalysis w/ reflexes; Complete Time: 18:14 1216 18:14 Interpretation: Normal except: UKET TRACE; UBLD 1+; UNIT 2+. 01/29 14:57 Order name: Lipase; Complete Time: 16:39 01/29 14:57 Order name: XRAY Chest (1 view); Complete Time: 18:14 01/29 18:14 Interpretation: Report review. 01/29 16:42 Order name: CT Abd/Pelvis - IV Contrast Only; Complete Time: 18:14 01/29 18:15 Interpretation: Report reviewed. 01/29 17:00 Order name: CT Head Brain wo Cont; Complete Time: 18:14 01/29 18:15 Interpretation: Report reviewed. 01/29 14:57 Order name: EKG; Complete Time: 14:57 01/29 14:57 Order name: Cardiac monitoring; Complete Time: 15:43 01/29 14:57 Order name: EKG - Nurse/Tech; Complete Time: 15:43 01/29 14:57 Order name: IV Saline Lock; Complete Time: 15:43 01/29 14:57 Order name: Labs collected and sent; Complete Time: 15:43 01/29 14:57 Order name: O2 Per Protocol; Complete Time: 15:43 01/29 14:57 Order name: O2 Sat Monitoring; Complete Time: 15:43 01/29 17:57 Order name: Straight Cath - Urine; Complete Time: 17:57 aa 01/29 18:16 Order name: PO challenge; Complete Time: 19:13 cp EC:40 Rate is 88 beats/min. Rhythm is regular. OR interval is normal. QRS interval is normal. cp QT interval is normal. T waves are Inverted in lead aVR. Interpreted by me. Reviewed by me. Administered Medications: 15:50 Drug: NS 0.9% IV 1000 ml IV at 1000 ml once; to be given as a bolus over 60 minutes aa5 Route: IV; Rate: 1000 ml; Site: right wrist; 16:50 Follow up: IV Status: Completed infusion; IV Intake: 1000ml aa5 15:50 Drug: Famotidine IVP 20 mg IVP once; dilute with 10 mL 0.9% NaCl; give over 2 minutes aa5 Route: IVP; Site: right wrist; 16:00 Follow up: Response: No adverse reaction aa5 15:50 Drug: Ondansetron IVP 4 mg IVP once; over 2 minutes Route: IVP; Site: right wrist; aa5 16:00 Follow up: Response: No adverse reaction aa5 15:50 Not Given (Patient Refused): fentanyl (pf)25 mcg IVP once aa5 17:16 Drug: metoCLOPramide IVP 10 mg IVP once; over 1 to 2 minutes Route: IVP; Site: right aa5 wrist; 17:40 Follow up: Response: No adverse reaction aa5 17:16 Drug: NS 0.9% IV 1000 ml IV at 1000 ml once; to be given as a bolus over 60 minutes aa5 Route: IV; Rate: 1000 ml; Site: right wrist; 18:16 Follow up: IV Status: Completed infusion; IV Intake: 1000ml aa5 18:57 Drug: Rocephin IV 1 grams IV at calculated rate once; Given slow IV push per pharmacy aa5 instructions Route: IV; Rate: calculated rate; Site: right wrist; 19:00 Follow up: IV Status: Completed infusion aa5 19:28 Drug: Acetaminophen PO 1000 mg PO once Route: PO; br2 19:30 Follow up: Response: Medication administered at discharge. br2 Disposition: 01/30 14:37 Co-signature as Attending Physician, Hola Otto MD I reviewed the patient's care rn provided by the Advanced Practice Provider and agree with the diagnosis and treatment plan. Disposition Summary: 01/30/24 19:17 Discharge Ordered Notes: Location: Home cp Problem: new cp Symptoms: have improved cp Condition: Stable cp Diagnosis - Diarrhea, unspecified cp - Nausea with vomiting, unspecified cp - Cough cp - UTI/ Urinary tract infection, site not specified cp Followup: cp - With: Private Physician - When: 2 - 3 days - Reason: Recheck today's complaints Discharge Instructions: - Discharge Summary Sheet cp - Diarrhea, Adult cp - Nausea and Vomiting, Adult cp - Urinary Tract Infection, Adult cp - Cough, Adult cp Forms: - Medication Reconciliation Form cp - Antibiotic Education cp - Prescription Opioid Use cp - Patient Portal Instructions cp - Leadership Thank You Letter cp Prescriptions: - cefpodoxime 200 mg Oral tablet - take 1 tablet ORAL route every 12 hours for 7 days with food; 14 tablet; cp Refills: 0, Product Selection Permitted - ondansetron 8 mg Oral Tablet,disintegrating - take 1 tablet ORAL route every 12 hours; 10 tablet; Refills: 0, Product cp Selection Permitted Signatures: Dispatcher [facility] EDHola Goldman MD MD rn Calderon, Audri RN RN aa5 Osorio Kim PA PA cp Martinez, Clarissa, RN RN cm10 Jerilyn Velazquez, RN RN br2
[2024-01-30] MEDS ORDERED: ACETAMINOPHEN 500 MG TAB ONE (19:22)
[2024-01-30 20:05] VITALS: TEMP 99
[2024-01-30 20:08] VITALS: BP 120/74; O2SAT 100
--- NOTE | 2024-01-31 11:57 | EKG ---
Test Date: 2024-01-30 Test Time: 15:34:18 Leasing Agent: LINA MEASUREMENT RESULTS: Intervals: Rate: 88 NH: 144 QRSD: 92 QT: 360 QTc: 435 [place]: P: 67 NH: 144 QRS: 64 T: 67 INTERPRETIVE STATEMENTS: Normal sinus rhythm Normal ECG Compared to ECG 03/10/2014 09:11:17 Sinus bradycardia no longer present Electronically Signed On 01-31-24 11:55:51 SUSPECT ARTIST SUPERVISOR by Twan Quan
== END 2024-01-30 19:31 | disposition home or self-care (01) ==
LOC: ER 14:22
DX: N39.0 Urinary tract infection, site not specified (principal); R19.7 Diarrhea, unspecified; R11.2 Nausea with vomiting, unspecified; R05.9 Cough, unspecified; I10 Essential (primary) hypertension; I48.91 Unspecified atrial fibrillation; J44.9 Chronic obstructive pulmonary disease, unspecified; Z11.52 Encounter for screening for COVID-19
CPT/HCPCS: 96361; 93005; 85025; 81001; 80048; 36415; 83735; 85610; 80076; 84484; 83690; 87804 ×2; 70450; 74177; 71045; 51702; 96375; 96374; 99285; 87811; Q9967; J2765; J3010; J2405; J7030 ×2; J0696